=== PATIENT | female | born 1935 | race Two or more races ===

== ENCOUNTER 2017-07-22 16:10 | Emergency (ER) | payer MEDICARE, OTHER ==
[~2017-07-22] VITALS: Ht 152.4 cm; Wt 54.4 kg
[2017-07-22] MEDS ORDERED: ACETAMINOPHEN325 M1 ORAL (16:20)
[2017-07-22] MEDS ORDERED: TRAMADOL HCL50 MG ORAL (16:20)
[2017-07-22] MEDS ORDERED: ATORVASTATIN CA40 MG ORAL (16:20)
[2017-07-22 16:30] VITALS: BP 152/81
[2017-07-22] MEDS ORDERED: Sodium Chloride 500ML 500 ML IV ONE (16:36)
[2017-07-22 17:11] LABS: APPEARANCE,URINE CLEAR; BILIRUBIN, URINE NEGATIVE (NEGATIVE); COLOR,URINE PALE YELLOW; GLUCOSE, URINE (UA) NEGATIVE (NEGATIVE); KETONES,URINE NEGATIVE (NEGATIVE); LEUKOCYTE ESTERASE ,URINE 1+ (NEGATIVE); NITRITE,URINE NEGATIVE (NEGATIVE); PH,URINE 8 (4.5-8.0); PROTEIN,URINE NEGATIVE (NEGATIVE); UROBILINOGEN,URINE NORMAL MG/DL (0.0-1.0)
[2017-07-22 17:19] LABS: HEMATOCRIT 43.5 % (37.0-47.0); HEMOGLOBIN 14.2 G/DL (12.0-16.0); MEAN CORPUSCULAR VOLUME 98 FL (80-99); PLATELET COUNT 203 K/UL (150-450); RED BLOOD COUNT 4.46 M/UL (4.20-5.40); RED CELL DISTRIBUTION WIDTH 13.2 % (11.6-14.8); WHITE BLOOD COUNT 8.2 K/UL (4.8-10.8)
[2017-07-22 17:40] LABS: ANION GAP 5 mmol/L (5-15); BLOOD UREA NITROGEN 17 mg/dL (7-18); CALCIUM 11.1 MG/DL (8.5-10.1); CARBON DIOXIDE 30 MMOL/L (21-32); CHLORIDE 99 MMOL/L (98-107); CREATININE 0.6 MG/DL (0.55-1.30); POTASSIUM 4.3 MMOL/L (3.5-5.1); SODIUM 134 MMOL/L (136-145)
[2017-07-22 17:45] LABS: ALBUMIN/GLOBULIN RATIO 0.8 (1.0-2.7); ALKALINE PHOSPHATASE 89 U/L (46-116)
[2017-07-22 18:13] LABS: ALANINE AMINOTRANSFERASE 21 U/L (12-78); ALBUMIN 3.9 G/DL (3.4-5.0); ASPARTATE AMINO TRANSFERASE 17 U/L (15-37); BILIRUBIN,TOTAL 0.3 MG/DL (0.2-1.0)
[2017-07-22 18:30] VITALS: BP 147/77
--- NOTE | 2017-07-22 19:05 | Emergency Room Report ---
History of Present Illness General Chief Complaint: General Complaint Source: Medical Record Present Illness HPI 81-year-old female presents ED for evaluation. Patient sent from long-term facility. Per's nursing staff patient is crying and agitated. So patient was sent here for evaluation. Upon arrival patient states she is upset. Does not know why she was brought here. Was playing games with her friends and then they suddenly brought her to the ER. Patient does feel depressed because her family does not visit her. Denies any suicidal or homicidal ideation. Denies hearing voices. States she otherwise feels well. No other aggravating or relieving factors. Denies any other associated symptoms Allergies: Coded Allergies: No Known Allergies (Unverified , 07/22/17) Patient History Past Medical History: none Past Surgical History: none Pertinent Family History: none Social History: Denies: smoking, alcohol use, drug use Now: No Immunizations: UTD Reviewed Nursing Documentation: PMH: Agreed; PSxH: Agreed Review of Systems All Other Systems: negative except mentioned in HPI Physical Exam Vital Signs Date Time Temp Pulse Resp B/P (MAP) Pulse Ox O2 Delivery O2 Flow Rate FiO2 07/22/17 16:04 97.8 86 16 146/80 98 Room Air 97.9 Sp02 EP Interpretation: reviewed, normal General Appearance: no apparent distress, alert, GCS 15, non-toxic Head: normocephalic, atraumatic Eyes: bilateral eye normal inspection, bilateral eye PERRL ENT: hearing grossly normal, normal pharynx, no angioedema, normal voice Neck: full range of motion, supple/symm/no masses Respiratory: chest non-tender, lungs clear, normal breath sounds, speaking full sentences Cardiovascular #1: regular rate, rhythm, no edema Cardiovascular #2: 2+ carotid (R), 2+ carotid (L), 2+ radial (R), 2+ radial (L) , 2+ dorsalis pedis (R), 2+ dorsalis pedis (L) Gastrointestinal: normal bowel sounds, non tender, soft, non-distended, no guarding, no rebound Rectal: deferred Genitourinary: normal inspection, no CVA tenderness Musculoskeletal: back normal, gait/station normal, normal range of motion, non- tender Neurologic: alert, oriented x3, responsive, motor strength/tone normal, sensory intact, speech normal Psychiatric: judgement/insight normal, memory normal, no suicidal/homicidal ideation, no delusions, depressed affect, anxious Reflexes: 3+ bicep (R), 3+ bicep (L), 3+ tricep (R), 3+ tricep (L), 3+ knee (R) , 3+ knee (L) Skin: normal color, no rash, warm/dry, well hydrated Lymphatic: no adenopathy Medical Decision Making Diagnostic Impression: Primary Impression: Behavioral change ER Course Hospital Course 81-year-old female presents ED for evaluation of crying and agitated behavior as per nursing staff Differential diagnoses include: sepsis, dehyration, anxiety Clinical course Patient placed on stretcher. on illuminating engineer. After initial history and physical I ordered labs, chest x-ray UA, IVFs labs reviewed- no leukocytosis, hemoglobin/hematocrit stable, electrolytes okay , UA negative CXR no acute process During my interaction with patient patient maintains good eye contact. No signs of suicidal or homicidal ideation. No evidence of delusions. Patient does appear anxious and somewhat depressed. But not a danger to herself or others. Discussed findings with PMD Dr. Pham. He agrees patient can be safely discharged back to long-term facility I. I feel this is a highly complex case requiring extensive working including EKG/Rhythm strip, Xray/CT/US, Blood/urine lab work, repeat exams while in ED, and administration of strong opiates/narcotics for pain control, admission to hospital or close patient follow up. Diagnosis - behavioral change Stable and discharged to SNF. Followup with PMD. Return to ED if symptoms recur or worse Labs Test 07/22/17 16:50 07/22/17 17:10 Urine Color Pale yellow Urine Appearance Clear Urine pH 8 (4.5-8.0) Urine Specific [place] 1.010 (1.005-1.035) Urine Protein Negative (NEGATIVE) Urine Glucose (UA) Negative (NEGATIVE) Urine Ketones Negative (NEGATIVE) Urine Occult Blood 1+ (NEGATIVE) Urine Nitrite Negative (NEGATIVE) Urine Bilirubin Negative (NEGATIVE) Urine Urobilinogen Normal MG/DL (0.0-1.0) Urine Leukocyte Esterase 1+ (NEGATIVE) Urine RBC 0-2 /HPF (0 - 2) Urine WBC 0-2 /HPF (0 - 2) Urine Squamous Epithelial Cells Occasional /LPF Urine Bacteria None /HPF (NONE) White Blood Count 8.2 K/UL (4.8-10.8) Red Blood Count 4.46 M/UL (4.20-5.40) Hemoglobin 14.2 G/DL (12.0-16.0) Hematocrit 43.5 % (37.0-47.0) Mean Corpuscular Volume 98 FL (80-99) Mean Corpuscular Hemoglobin 31.9 PG (27.0-31.0) Mean Corpuscular Hemoglobin Concent 32.6 G/DL (32.0-36.0) Red Cell Distribution Width 13.2 % (11.6-14.8) Platelet Count 203 K/UL (150-450) Mean Platelet Volume 7.8 FL (6.5-10.1) Neutrophils (%) (Auto) % (45.0-75.0) Lymphocytes (%) (Auto) % (20.0-45.0) Monocytes (%) (Auto) % (1.0-10.0) Eosinophils (%) (Auto) % (0.0-3.0) Basophils (%) (Auto) % (0.0-2.0) Differential Total Cells Counted 100 Neutrophils % (Manual) 43 % (45-75) Lymphocytes % (Manual) 37 % (20-45) Monocytes % (Manual) 18 % (1-10) Eosinophils % (Manual) 1 % (0-3) Basophils % (Manual) 1 % (0-2) Band Neutrophils 0 % (0-8) Platelet Estimate Adequate Platelet Morphology Normal Polychromasia 1+ Macrocytosis 1+ Sodium Level 134 MMOL/L (136-145) Potassium Level 4.3 MMOL/L (3.5-5.1) Chloride Level 99 MMOL/L (98-107) Carbon Dioxide Level 30 MMOL/L (21-32) Anion Gap 5 mmol/L (5-15) Blood Urea Nitrogen 17 mg/dL (7-18) Creatinine 0.6 MG/DL (0.55-1.30) Estimat Glomerular Filtration Rate mL/min (>60) Glucose Level 107 MG/DL (74-106) Calcium Level 11.1 MG/DL (8.5-10.1) Total Bilirubin 0.3 MG/DL (0.2-1.0) Aspartate Amino Transf (AST/SGOT) 17 U/L (15-37) Alanine Aminotransferase (ALT/SGPT) 21 U/L (12-78) Alkaline Phosphatase 89 U/L (46-116) Total Protein 8.7 G/DL (6.4-8.2) Albumin 3.9 G/DL (3.4-5.0) Globulin 4.8 g/dL Albumin/Globulin Ratio 0.8 (1.0-2.7) Chest X-Ray Diagnostic Results Chest X-Ray Diagnostic Results : Chest X-Ray Ordered: Yes # of Views/Limited/Complete: 1 View Indication: Other - ams EP Interpretation: Yes Interpretation: no consolidation, no effusion, no pneumothorax, no acute cardiopulmonary disease Impression: No acute disease Electronically Signed by: Electronically signed by Boni Winters MD Last Vital Signs Date Time Temp Pulse Resp B/P (MAP) Pulse Ox O2 Delivery O2 Flow Rate FiO2 07/22/17 16:04 97.8 86 16 146/80 98 Room Air 97.9 Status: improved Disposition: XFER SNF Condition: Stable Patient Instructions: Depression, Adult, [id number] Boni Winters MD Jul 22, 2017 19:05
[2017-07-22 19:24] VITALS: BP 133/69
[2017-07-22 20:30] VITALS: BP 133/69
--- NOTE | 2017-07-23 10:25 | Diagnostic Imaging Report ---
Indication: Chest pain Technique: One view of the chest Comparison: none Findings: Mild perihilar interstitial prominence and bronchial wall thickening is probably chronic. The lungs and pleural spaces are otherwise clear. Heart size is normal. The aorta is tortuous and calcified. There is mild thoracic scoliotic deformity Impression: Mild perihilar interstitial prominence and bronchial wall thickening, suspect chronic No definite acute process
== END 2017-07-22 20:30 ==
LOC: EDBD 16:10 → EMR 16:41
DX: F91.9 Conduct disorder, unspecified (principal)
CPT/HCPCS: 36415; 71045; 80053; 81003; 85007; 85025; 96361; 96374; 99284

== ENCOUNTER 2019-10-27 10:12 | Inpatient (IN) | payer MEDICARE, MEDICAID ==
[~2019-10-27] VITALS: Ht 157.5 cm; Wt 52.6 kg
[~2019-10-27 10:12] MED LIST: ACETAMINOPHEN325 M1 ORAL; ATORVASTATIN CA40 MG ORAL; TRAMADOL HCL50 MG ORAL
--- NOTE | 2019-10-27 10:30 | NUR ---
ED Nurse Note: Patient BIBA From [facility], per EMS, patient has not been eating for 2 days. Patient brought here for G-Tube placement. Patient AxO x 2, breathing even and unlabored. Patient on the monitor car operator, no s/s of acute distress.
[2019-10-27] MEDS ORDERED: NORCO 5-325 TA1 EAC1 ORAL (10:40)
[2019-10-27] MEDS ORDERED: NORCO 10-325 T1 EACH ORAL (10:40)
[2019-10-27] MEDS ORDERED: ACETAMINOPHEN500 MG ORAL (11:25)
[2019-10-27] MEDS ORDERED: ZINC SULFATE220 M1 ORAL ×2 (11:25→16:24)
[2019-10-27] MEDS ORDERED: CALCIUM + VITA1 EAC1 PO (11:25)
[2019-10-27] MEDS ORDERED: VITAMIN C500 M1 ORAL (11:25)
[2019-10-27] MEDS ORDERED: ATORVASTATIN CA40 MG ORAL ×2 (11:25→19:57)
[2019-10-27] MEDS ORDERED: PANTOPRAZOLE SO40 MG ORAL (11:25)
[2019-10-27] MEDS ORDERED: MIRTAZAPINE30 MG ORAL (11:25)
[2019-10-27] MEDS ORDERED: NOVOLIN R100 UNIT/1 SUBQ ×2 (11:25→16:18)
[2019-10-27] MEDS ORDERED: MELATONIN3 M2 PO (11:25)
[2019-10-27] MEDS ORDERED: ASPIR 8181 MG ORAL ×2 (11:25→19:57)
--- NOTE | 2019-10-27 11:26 | Emergency Room Report ---
History of Present Illness General Chief Complaint: Generalized Weakness Source: Medical Record, EMS Present Illness HPI 83-year-old female presents for evaluation. Brought in from [facility] facility by EMS. Increased weakness for few days. Poor oral intake. Patient nonverbal at baseline. Moaning in ambulance bay. Unable to provide any additional history at this time. No reported fevers or chills. No nausea or vomiting. No other aggravating relieving factors. No other associated symptoms Allergies: Coded Allergies: ALENDRONATE SODIUM (Verified Allergy, Unknown, 10/27/19) SIMVASTATIN (Verified Allergy, Unknown, 10/27/19) COVID-19 Screening Contact w/high risk pt: No Recent Travel to affected area: No Experienced COVID-19 symptoms?: No COVID-19 Testing performed ROVING INSPECTOR: No Patient History Past Medical History: none Past Surgical History: none Pertinent Family History: none Social History: Denies: smoking, alcohol use, drug use Now: No Immunizations: UTD Reviewed Nursing Documentation: PMH: Agreed; PSxH: Agreed Review of Systems All Other Systems: limited Physical Exam Vital Signs Date Time Temp Pulse Resp B/P (MAP) Pulse Ox O2 Delivery O2 Flow Rate FiO2 10/27/19 10:12 97.9 104 22 94/64 (74) 92 Room Air Sp02 EP Interpretation: reviewed, normal General Appearance: GCS 15, non-toxic, other - Nonverbal Head: normocephalic, atraumatic Eyes: bilateral eye normal inspection, bilateral eye PERRL ENT: hearing grossly normal, normal pharynx, no angioedema, normal voice Neck: full range of motion, supple/symm/no masses Respiratory: chest non-tender, lungs clear, normal breath sounds, speaking full sentences Cardiovascular #1: regular rate, rhythm, no edema Cardiovascular #2: 2+ carotid (R), 2+ carotid (L), 2+ radial (R), 2+ radial (L) , 2+ dorsalis pedis (R), 2+ dorsalis pedis (L) Gastrointestinal: normal bowel sounds, non tender, soft, non-distended, no guarding, no rebound Rectal: deferred Genitourinary: normal inspection, no CVA tenderness Musculoskeletal: back normal, normal range of motion, non-tender Neurologic: alert, motor strength/tone normal, sensory intact, other - Nonverbal Psychiatric: other - Nonverbal Reflexes: 3+ bicep (R), 3+ bicep (L), 3+ tricep (R), 3+ tricep (L), 3+ knee (R) , 3+ knee (L) Skin: other - See nursing notes Lymphatic: no adenopathy Medical Decision Making Diagnostic Impression: Primary Impression: Episode of generalized weakness Additional Impressions: Failure to thrive Qualified Codes: R62.7 - Adult failure to thrive UTI (urinary tract infection) Qualified Codes: N39.0 - Urinary tract infection, site not specified ER Course Hospital Course 83-year-old female presenting to ED with generalized weakness, poor appetite Differential diagnoses include: Pneumonia, UTI, sepsis, dehydration, CO/ unstable angina, failure to thrive Clinical course Patient placed on stretcher. On hall monitor. After initial history and physical, I ordered labs, IV fluids, EKG, chest x-ray, blood cultures, UA. Labs - noted leukocytosis, K 2.9, lactic ok, UA + bacteria CXR - no acute process given IV fluids. Given antibiotics. Case discussed with Dr Pham and they agreed to admit patient to their service for further care and support I feel this is a highly complex case requiring extensive working including EKG/ Rhythm strip, Xray/CT/US, Blood/urine lab work, repeat exams while in ED, and administration of strong opiates/narcotics for pain control, admission to hospital or close patient follow up. Diagnosis - episode of generalized weakness, failure to thrive, UTI Patient admitted to floor in serious condition Labs Test 10/27/19 11:35 10/27/19 12:35 White Blood Count 13.4 K/UL (4.8-10.8) Red Blood Count 3.86 M/UL (4.20-5.40) Hemoglobin 12.4 G/DL (12.0-16.0) Hematocrit 38.8 % (37.0-47.0) Mean Corpuscular Volume 101 FL (80-99) Mean Corpuscular Hemoglobin 32.1 PG (27.0-31.0) Mean Corpuscular Hemoglobin Concent 31.9 G/DL (32.0-36.0) Red Cell Distribution Width 15.9 % (11.6-14.8) Platelet Count 274 K/UL (150-450) Mean Platelet Volume 8.1 FL (6.5-10.1) Neutrophils (%) (Auto) % (45.0-75.0) Lymphocytes (%) (Auto) % (20.0-45.0) Monocytes (%) (Auto) % (1.0-10.0) Eosinophils (%) (Auto) % (0.0-3.0) Basophils (%) (Auto) % (0.0-2.0) Differential Total Cells Counted 100 Neutrophils % (Manual) 55 % (45-75) Lymphocytes % (Manual) 16 % (20-45) Monocytes % (Manual) 22 % (1-10) Eosinophils % (Manual) 2 % (0-3) Basophils % (Manual) 0 % (0-2) Band Neutrophils 5 % (0-8) Platelet Estimate Adequate Platelet Morphology Normal Anisocytosis 1+ Macrocytosis 1+ Sodium Level 141 MMOL/L (136-145) Potassium Level 2.9 MMOL/L (3.5-5.1) Chloride Level 102 MMOL/L (98-107) Carbon Dioxide Level 28 MMOL/L (21-32) Anion Gap 11 mmol/L (5-15) Blood Urea Nitrogen 3 mg/dL (7-18) Creatinine 0.5 MG/DL (0.55-1.30) Estimat Glomerular Filtration Rate > 60 mL/min (>60) Glucose Level 138 MG/DL (74-106) Lactic Acid Level 1.20 mmol/L (0.4-2.0) Calcium Level 9.1 MG/DL (8.5-10.1) Total Bilirubin 1.0 MG/DL (0.2-1.0) Aspartate Amino Transf (AST/SGOT) 17 U/L (15-37) Alanine Aminotransferase (ALT/SGPT) < 6 U/L (12-78) Alkaline Phosphatase 87 U/L (46-116) Total Protein 7.5 G/DL (6.4-8.2) Albumin 2.3 G/DL (3.4-5.0) Globulin 5.2 g/dL Albumin/Globulin Ratio 0.4 (1.0-2.7) Urine Color Yellow Urine Appearance Cloudy Urine pH 7 (4.5-8.0) Urine Specific [place] 1.010 (1.005-1.035) Urine Protein 3+ (NEGATIVE) Urine Glucose (UA) Negative (NEGATIVE) Urine Ketones 3+ (NEGATIVE) Urine Blood 4+ (NEGATIVE) Urine Nitrite Positive (NEGATIVE) Urine Bilirubin 1+ (NEGATIVE) Urine Ictotest Negative (NEGATIVE) Urine Urobilinogen 12 MG/DL (0.0-1.0) Urine Leukocyte Esterase 3+ (NEGATIVE) Urine RBC 5-10 /HPF (0 - 2) Urine WBC Tntc /HPF (0 - 2) Urine Squamous Epithelial Cells Few /LPF (NONE/OCC) Urine Bacteria Many /HPF (NONE) Chest X-Ray Diagnostic Results Chest X-Ray Diagnostic Results : Chest X-Ray Ordered: Yes # of Views/Limited/Complete: 1 View Indication: Other EP Interpretation: Yes Interpretation: no consolidation, no effusion, no pneumothorax, no acute cardiopulmonary disease Impression: No acute disease Electronically Signed by: Electronically signed by Boni Winters MD Last Vital Signs Date Time Temp Pulse Resp B/P (MAP) Pulse Ox O2 Delivery O2 Flow Rate FiO2 /2/20 10:12 97.9 104 22 94/64 (74) 92 Room Air Status: improved Disposition: ADMITTED INPATIENT Condition: Serious Boni Winters MD Oct 27, 2019 11:26
--- NOTE | 2019-10-27 11:40 | NUR ---
ED Nurse Note: Blood drawn and sent to lab along with VRE/MRSA swabs
[2019-10-27 11:56] VITALS: BP 118/67
[2019-10-27 11:57] LABS: HEMATOCRIT 38.8 % (37.0-47.0); HEMOGLOBIN 12.4 G/DL (12.0-16.0); MEAN CORPUSCULAR VOLUME 101 FL (80-99); PLATELET COUNT 274 K/UL (150-450); RED BLOOD COUNT 3.86 M/UL (4.20-5.40); RED CELL DISTRIBUTION WIDTH 15.9 % (11.6-14.8); WHITE BLOOD COUNT 13.4 K/UL (4.8-10.8)
[2019-10-27 12:22] LABS: ANION GAP 11 mmol/L (5-15); BLOOD UREA NITROGEN 3 mg/dL (7-18); CALCIUM 9.1 MG/DL (8.5-10.1); CARBON DIOXIDE 28 MMOL/L (21-32); CHLORIDE 102 MMOL/L (98-107); CREATININE 0.5 MG/DL (0.55-1.30); POTASSIUM 2.9 MMOL/L (3.5-5.1); SODIUM 141 MMOL/L (136-145)
--- NOTE | 2019-10-27 12:30 | NUR ---
ED Nurse Note: Foeley catheter placed, urine specimen sent to lab.
[2019-10-27 12:40] LABS: ALANINE AMINOTRANSFERASE < 6 U/L (12-78); ALBUMIN 2.3 G/DL (3.4-5.0); ALBUMIN/GLOBULIN RATIO 0.4 (1.0-2.7); ALKALINE PHOSPHATASE 87 U/L (46-116); ASPARTATE AMINO TRANSFERASE 17 U/L (15-37)
--- NOTE | 2019-10-27 12:52 | NUR ---
ED Nurse Note: Patient resting in bed, breathing even and unlabored. No s/s of acute distress, will continue to monitor.
[2019-10-27 12:55] LABS: APPEARANCE,URINE CLOUDY; BILIRUBIN, URINE 1+ (NEGATIVE); GLUCOSE, URINE (UA) NEGATIVE (NEGATIVE); KETONES,URINE 3+ (NEGATIVE); LEUKOCYTE ESTERASE ,URINE 3+ (NEGATIVE); NITRITE,URINE POSITIVE (NEGATIVE); PH,URINE 7 (4.5-8.0); PROTEIN,URINE 3+ (NEGATIVE); UROBILINOGEN,URINE 12 MG/DL (0.0-1.0)
[2019-10-27] MEDS ORDERED: NS w/KCl 40mEq 1,000 ML IV SCH (13:00)
[2019-10-27 13:10] LABS: COLOR,URINE YELLOW
[2019-10-27] MEDS ORDERED: cefTRIAXone 1 GM in NS 55 ML IVPB ONE (13:30)
[2019-10-27 13:53] VITALS: BP 116/68
--- NOTE | 2019-10-27 15:20 | Diagnostic Imaging Report ---
Indication: Shortness of breath Technique: One view of the chest Comparison: 07/22/2017 Findings: Bilateral interstitial disease with central bronchial wall thickening appears similar to the prior exam, suspect chronic on the basis of senescent changes. The heart size is upper limits normal. The aorta is tortuous and calcified. 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 Correlate with clinical findings
--- NOTE | 2019-10-27 15:50 | NUR ---
ED Nurse Note: Report given to Richar HERNÁNDEZ
[2019-10-27] MEDS ORDERED: PROTONIX40 MG ORAL (16:19)
[2019-10-27] MEDS ORDERED: ASCORBIC ACID500 MG ORAL (16:22)
[2019-10-27] MEDS ORDERED: LATANOPROST2.5 ML BOTH EYES (16:23)
--- NOTE | 2019-10-27 17:02 | History & Physical ---
History and Physical History & Physicial pt was seen in ER lethargic severe malnutrition UTI Full note will be dictated Migel Pham MD Oct 27, 2019 17:02
[2019-10-27] MEDS: D5 1/2NS w/KCl 40meq 1000ml 1,000 ML IV SCH ×2 (17:44→18:44)
--- NOTE | 2019-10-27 18:13 | NUR ---
NURSE NOTES: Picture of Sacral Wound would not load up. Matter regarding [place] [facility]. Contacted HELP Desk. Ticket Number [phone].
--- NOTE | 2019-10-27 18:38 | NUR ---
NURSE NOTES: Patient unable to tolerate potassium replacement IV, I had to slow down to 50 cc/hour and patient is tolerating well.
[2019-10-27] MEDS: Piperacillin/Tazobactam 3.375 GM in NS 110 ML IVPB SCH (18:45)
[2019-10-27] MEDS: Heparin 5000 units/ml inj SUBQ SCH (18:48)
--- NOTE | 2019-10-27 19:40 | NUR ---
NURSE NOTES: Patient in semi-Colin's position, sleeping, IV patent in left upper arm, side rails up x 3, bed in lowest position, wheels locked, antibiotics and IV fluid with potassium running, endorsing NG Tube, Wound Photo upload, and three medicines to add to medication reconciliation, all materials at bedside, patient in no apparent distress.
--- NOTE | 2019-10-27 19:45 | NUR ---
NURSE NOTES: Report received from Richar HERNÁNDEZ. Patient is awake and alert x 1. Endorsed to Caden HERNÁNDEZ that patient is [place]/Rwandan speaking, Rwandan is primary language. Patient is room air, does not appear to be in respiratory distress at this time. Endorsed to Caden HERNÁNDEZ that patient has high white blood cell count likely due to UTI. Patient noted to have 22 teresa IV access in left upper arm with fluids running per MD orders. IV accessed removed from left hand as was no lunger flushing. Was endorsed to Caden HERNÁNDEZ that patient needs NG tube placement, however, patient is resistive to care. Was endorsed to Caden HERNÁNDEZ that Richar HERNÁNDEZ was unable to upload wound care photo. Ticket placed to HELP desk by Richar HERNÁNDEZ. Caden HERNÁNDEZ updated patients medication list. Bed locked, in lowest position, and alarmed. Will continue to follow plan of care
--- NOTE | 2019-10-27 19:47 | NUR ---
HAND-OFF: Report given to Caden Ortiz RN. Patient in semi-Colin's position, sleeping, IV patent in left upper arm, side rails up x 3, bed in lowest position, wheels locked, antibiotics and IV fluid with potassium running, endorsing NG Tube, Wound Photo upload, and three medicines to add to medication reconciliation, all materials at bedside, patient in no apparent distress.
[2019-10-27] MEDS ORDERED: DORZOLAMIDE 2%10 ML OP (19:57)
[2019-10-27 20:00] VITALS: BP 128/67
[2019-10-27] MEDS: NovoLOG Insulin Flexpen SUBQ SCH (20:43)
--- NOTE | 2019-10-27 21:40 | NUR ---
NURSE NOTES: Attempted to place NG tube. Caden RN and Jessica RN both unsuccessful in placing NG tube. Allowing patient to rest at this time. Will attempt again later in shift.
--- NOTE | 2019-10-27 23:43 | NUR ---
NURSE NOTES: Wound care photo uploaded to patients chart.
[2019-10-28] VITALS (7 sets, daily range): BP systolic 95–122; BP diastolic 58–66
--- NOTE | 2019-10-28 00:07 | NUR ---
NURSE NOTES: Nasogastric tube placed. Air sounds auscultated when air injected into tube. Anchored with tape. STAT xray of abdomen ordered.
--- NOTE | 2019-10-28 00:57 | Diagnostic Imaging Report ---
EXAM: XR Abdomen, 2 Views CLINICAL HISTORY: NGT TECHNIQUE: Frontal view of the abdomen/pelvis with upright view of the abdomen. COMPARISON: None FINDINGS: Hardware: Enteric tube terminates in the region of the stomach. Catheter projected over the pelvis. Abdomen: Nonobstructive but nonspecific bowel gas pattern. No free air. Bones: 3 screws traversing the right femoral neck. Prominent degenerative changes of the right hip with flattening of the right femoral head. Osteopenia. Soft tissues: Injection granulomas in the gluteal soft tissues. Lower chest: Left basilar opacity with probable left-sided pleural effusion. IMPRESSION: Enteric tube terminates in the region of the stomach.
--- NOTE | 2019-10-28 01:50 | NUR ---
NURSE NOTES: Nasogastric tube placement confirmed by Ayah Hernandez MD. In place, patent, and okay to use. Caden HERNÁNDEZ began Glucerna 1.2 per MD orders. Began feeding at a rate of 20 cc/hr. Will continue to increase to goal rate of 60 cc/hr if patient continues to tolerate feeding.
--- NOTE | 2019-10-28 02:53 | NUR ---
NURSE NOTES: Patient appears to be tolerating tube feeding well. No nausea of vomiting. Residual of 25 cc. Caden HERNÁNDEZ increased Glucerna 1.2 from 20 cc/hr to 30 cc/hr, working towards goal rate of 60 cc/hr. Will continue to monitor and increase feeding rate as tolerated by patient.
--- NOTE | 2019-10-28 03:55 | NUR ---
NURSE NOTES: Patient continues to appear to be tolerating feeding well. No residual. Caden HERNÁNDEZ increased Glucerna 1.2 to run at 40 cc/hr working towards goal rate of 60 cc/hr.
--- NOTE | 2019-10-28 04:59 | NUR ---
NURSE NOTES: Patient continues to appear to be tolerating feeding well. No residual. Caden HERNÁNDEZ increased Glucerna 1.2 to run at 50 cc/hr working towards goal rate of 60 cc/hr.
--- NOTE | 2019-10-28 05:50 | NUR ---
NURSE NOTES: Patient continues to tolerate feeding. 10 cc residual. Caden HERNÁNDEZ increased Glucerna 1.2 feeding to 60 cc/hr. Patient now at goal rate.
[2019-10-28] MEDS: D5 1/2NS w/KCl 40meq 1000ml 1,000 ML IV SCH ×2 (06:08→20:07)
[2019-10-28] MEDS: Piperacillin/Tazobactam 3.375 GM in NS 110 ML IVPB SCH ×3 (06:09→20:09)
[2019-10-28] MEDS: NovoLOG Insulin Flexpen SUBQ SCH ×4 (06:26→20:10)
--- NOTE | 2019-10-28 07:35 | NUR ---
NURSE NOTES: pt in bed resting. Pt has [place] tube feeding. Pt keeps moaning and states throat hurts. Bed is locked and in lowest position. Calll light within reach. Will continue to monitor pt. IV site intact and running.
--- NOTE | 2019-10-28 07:39 | NUR ---
HAND-OFF: Report given to Mitzy HERNÁNDEZ. Endorsed that patient recently met goal rate for tube feeding and to continue to monitor. Endorsed wound care. Patient currently in stable condition.
[2019-10-28 08:14] LABS: HEMATOCRIT 36.5 % (37.0-47.0); HEMOGLOBIN 11.7 G/DL (12.0-16.0); MEAN CORPUSCULAR VOLUME 101 FL (80-99); PLATELET COUNT 265 K/UL (150-450); RED BLOOD COUNT 3.61 M/UL (4.20-5.40); RED CELL DISTRIBUTION WIDTH 15.9 % (11.6-14.8)
[2019-10-28 08:38] LABS: ALANINE AMINOTRANSFERASE 9 U/L (12-78); ALBUMIN 2.1 G/DL (3.4-5.0); ALBUMIN/GLOBULIN RATIO 0.4 (1.0-2.7); ALKALINE PHOSPHATASE 82 U/L (46-116); ANION GAP 8 mmol/L (5-15); ASPARTATE AMINO TRANSFERASE 15 U/L (15-37); BILIRUBIN,TOTAL 0.5 MG/DL (0.2-1.0); BLOOD UREA NITROGEN 5 mg/dL (7-18); CALCIUM 9.1 MG/DL (8.5-10.1); CARBON DIOXIDE 26 MMOL/L (21-32); CHLORIDE 104 MMOL/L (98-107); CHOLESTEROL 91 MG/DL (< 200); CREATININE 0.5 MG/DL (0.55-1.30); HDL CHOLESTEROL 30 MG/DL (40-60); POTASSIUM 3.2 MMOL/L (3.5-5.1); SODIUM 138 MMOL/L (136-145); TRIGLYCERIDES 94 MG/DL (30-150)
[2019-10-28] MEDS: Heparin 5000 units/ml inj SUBQ SCH ×2 (08:43→20:09)
--- NOTE | 2019-10-28 08:56 | NUR ---
CHARGE NURSE NOTE: WBC 01734, K3.2. was called, message left.
--- NOTE | 2019-10-28 09:38 | NUR ---
CHARGE NURSE NOTE: Spoke with (ID doctor), notified him about WBC count. He will see pt today. No new orders given.
--- NOTE | 2019-10-28 10:05 | NUR ---
PT EVALUATION NOTE Patient seen for initial evaluation. Patient is total assist with all functional mobility and ADLs. Skilled inpatient PT intervention not indicated as patient is at baseline level of functioning. Patient discharged from PT, Mitzy HERNÁNDEZ notified. Addendum: 10/28/19 at 1041 by HOA QUIROS PT Amended: Links added.
--- NOTE | 2019-10-28 10:20 | NUR ---
RD ASSESSMENT & RECOMMENDATIONS SEE CARE ACTIVITY FOR COMPLETE ASSESSMENT DAILY ESTIMATED NEEDS: Needs based on DM, 50.3kg 25-35 kcals/kg 4849-4179 total kcals 1.25-1.5 g protein/kg 63-75 g total protein 25-30 mL/kg 0628-3289 total fluid mLs NUTRITION DIAGNOSIS: Swallowing difficulty r/t FTT and poor po intake as evidenced by pt adm from SNF w/ poor intake, now on NGT feeds. CURRENT TF: Glucerna 1.2 @60 ENTERAL NUTRITION RECOMMENDATIONS: LOWER GLUCERNA 1.2 to goal of 55ml/hr x24 hrs to provide 1320ml, 1584 kcal, 79g pro, 1063ml free fluid - rec to lower current goal rate to 55ml/hr - Flush per MD/ HOB over 30 degrees ADDITIONAL RECOMMENDATIONS: 1) Maintain calibrated bed scale wts 2) F/up w/ WC eval 3) Rec SEWAGE PLANT SUPERVISOR eval for oral grat 4) F/up w/ H&P 5) Monitor BG, need for NISS or change of IVF from D5 to NS
--- NOTE | 2019-10-28 10:57 | NUR ---
NURSE NOTES: pt pulled out NG tube, and complains of pain when she is on her right side.
--- NOTE | 2019-10-28 12:24 | NUR ---
CASE MANAGEMENT: INITIAL REVIEW 83 YO F JOSEFINA FROM [facility] CC: GEN WEAKNESS PMHx: UNABLE TO STATE Si:FTT. WEAKNESS. VS: T 97.9 HR 104 RR 22 B/P 94/64 SATS 92% ON RA LABS: WBC 13.4 K 2.9 BUN 3 CR 0.5 GLU 138 ALT <6 IS:NS BOLUS X1 NS W/ KCL X1 CEFTRIAXONE IV X1 CXR Impression: No acute disease PATIENT ADMITTED TO MED/SURG 10/27/2019 @ 1325 DCP: SNF PLAN OF CARE: NON VIOLENT RESTRAINTS
--- NOTE | 2019-10-28 14:25 | NUR ---
NURSE NOTES: Charge nurse will endorse plan of care to Leonel
--- NOTE | 2019-10-28 14:34 | General Progress Note ---
Assessment/Plan Problem List: (1) UTI (urinary tract infection) ICD Codes: N39.0 - Urinary tract infection, site not specified SNOMED: 42146972 Qualifiers: Qualified Codes: N39.0 - Urinary tract infection, site not specified (2) Severe protein-calorie malnutrition ICD Codes: E43 - Unspecified severe protein-calorie malnutrition SNOMED: 027447475, 355301452, 322547421 (3) Failure to thrive SNOMED: 78687667 Qualifiers: Qualified Codes: R62.7 - Adult failure to thrive (4) Toxic metabolic encephalopathy ICD Codes: G92 - Toxic encephalopathy SNOMED: 681479913 (5) Diabetes mellitus ICD Codes: E11.9 - Type 2 diabetes mellitus without complications SNOMED: 92791134 (6) Hypokalemia ICD Codes: E87.6 - Hypokalemia SNOMED: 68333390 Assessment/Plan: IVF with K Reinsert NG TF Neurology and psych consult follow labs SSI Discussed with RN and Dr Abbi taylor Subjective Allergies: Coded Allergies: ALENDRONATE SODIUM (Verified Allergy, Unknown, 10/27/19) SIMVASTATIN (Verified Allergy, Unknown, 10/27/19) Subjective pulled her NG Objective Last 24 Hour Vital Signs Date Time Temp Pulse Resp B/P (MAP) Pulse Ox O2 Delivery O2 Flow Rate FiO2 10/28/19 12:22 97.9 108 20 95/60 (72) 95 10/28/19 09:00 Room Air 10/28/19 08:00 98.6 121 22 111/64 (80) 93 10/28/19 05:17 Room Air 10/28/19 04:00 98.2 110 21 114/66 (82) 94 10/28/19 00:00 97.8 99 20 107/58 (74) 95 10/27/19 21:00 Room Air 10/27/19 20:00 98.0 104 20 128/67 (87) 98 10/27/19 16:55 Room Air 10/27/19 15:55 97.8 84 22 116/68 98 Room Air Intake and Output 10/27/19 10/28/19 19:00 07:00 Intake Total 0 ml 895.0 ml Output Total 200 ml 300 ml Balance -200 ml 595.0 ml Intake Oral 0 ml Free Water 60 ml IV Total 635.0 ml Tube Feeding 200 ml Output Urine Total 200 ml 300 ml # Voids 1 # Bowel Movements 1 2 Laboratory Tests 10/28/19 07:30: White Blood Count 16.0H, Red Blood Count 3.61L, Hemoglobin 11.7L, Hematocrit 36.5L, Mean Corpuscular Volume 101H, Mean Corpuscular Hemoglobin 32.4H, Mean Corpuscular Hemoglobin Concent 32.0, Red Cell Distribution Width 15.9H, Platelet Count 265, Mean Platelet Volume 7.9, Neutrophils (%) (Auto) , Lymphocytes (%) (Auto) , Monocytes (%) (Auto) , Eosinophils (%) (Auto) , Basophils (%) (Auto) , Differential Total Cells Counted 100, Neutrophils % ( Manual) 59, Lymphocytes % (Manual) 21, Monocytes % (Manual) 18H, Eosinophils % ( Manual) 2, Basophils % (Manual) 0, Band Neutrophils 0, Platelet Estimate Adequate, Platelet Morphology Normal, Hypochromasia 1+, Anisocytosis 1+, Macrocytosis 1+, Sodium Level 138, Potassium Level 3.2L, Chloride Level 104, Carbon Dioxide Level 26, Anion Gap 8, Blood Urea Nitrogen 5L, Creatinine 0.5L, Estimat Glomerular Filtration Rate > 60, Glucose Level 198H, Hemoglobin A1c 6.6H , Calcium Level 9.1, Magnesium Level 1.6L, Total Bilirubin 0.5, Aspartate Amino Transf (AST/SGOT) 15, Alanine Aminotransferase (ALT/SGPT) 9L, Alkaline Phosphatase 82, Total Protein 7.3, Albumin 2.1L, Globulin 5.2, Albumin/Globulin Ratio 0.4L, Triglycerides Level 94, Cholesterol Level 91, LDL Cholesterol 42, HDL Cholesterol 30L, Cholesterol/HDL Ratio 3.0L, Thyroid Stimulating Hormone ( TSH) 2.929 Height (Feet): 5 Height (Inches): 2.00 Weight (Pounds): 116 Cardiovascular: normal rate Respiratory/Chest: lungs clear Abdomen: soft Edema: no edema noted Migel Barrett MD Oct 28, 2019 14:34
--- NOTE | 2019-10-28 15:00 | Consultation ---
Consult Note Consult Note [facility] NEUROLOGY CONSULTATION October 28, [address] Pham, I evaluated Ms. Alessandra Veliz and my assesement is as follows. HISTORY: Ms. Alessandra Veliz is an 83-year-old, right-handed, lady, who does have a past history of diabetes mellitus and cognitive dysfunction. As per Dr. Pham who has been taking care of her for some time at her baseline she is able to communicate and do a little bit of walking. She lives in a long-term where she was noted to be increasingly weak, more confused and agitated, not her usual self. As a result of that she was brought into the [facility] emergency room and has since been admitted. This consultation was requested to evaluate the patient from a neurological point of view for her altered mental state. Ms. Veliz was unable to give me any history. PAST HISTORY: Diabetes mellitus and cognitive dysfunction. FAMILY HISTORY: Unavailable. PERSONAL HISTORY: Home: She lives in a long-term. Work: She is unemployed now and is unable to tell me what she did in the past. Habits: There is no history of alcohol tobacco or illicit drug use in the near past. ALLERGIES: She is allergic to simvastatin and alendronate. NEUROLOGIC REVIEW OF SYSTEMS: Benign. PHYSICAL EXAMINATION: GENERAL: The patient is a well developed, but lean lady lying in bed screaming from time to time for no apparent reason. VITAL SIGNS: Pulse: 108/minute and regular. Blood Pressure: 95/60 mm of Hg. Respirations: 20/minute Temperature: 97.9 F HEAD: Normocephalic and atraumatic. NECK: No neck rigidity was observed. EENT: Benign. EXTREMITIES: Benign. NEUROLOGIC EXAMINATION: MENTAL STATUS EXAMINATION: She was awake but not completely alert. She was oriented to self only. She had no idea of where she was or the date was. She was able to recall 3/3 words immediately but could not remember any of them in 1 minute and 3 minutes. She was unable to tell me who the president president was or who any presidents were. She was unable to cooperate for further mental status testing. SPEECH: She had a mild dysarthria. LANGUAGE: Language was impossible to test because of inability to cooperate. CRANIAL NERVE EXAMINATION: II: She did blink to threat but was unable to cooperate for confrontation testing. III, IV, : External ocular movements were full and pupils 3 mm in diameter equal, round, regular and reactive to light. V: The facial sensations were normal, and the temporales, masseters and pterygoids functioned normally. VII: The facial expressions were normal and no facial asymmetry was seen. VIII: She was able to hear well bilaterally and had no nystagmus. IX: The palate moved symmetrically on phonation. X: There was no hoarseness of voice. XI: The sternocleidomastoids and trapezii functioned normally. XII: The tongue was in the midline without any fasciculations or atrophy. MOTOR SYSTEM: The tone was normal in all 4 extremities. Examination of muscle mass revealed generalized muscle wasting. In addition she also had mild bilateral ankle cord contractures. Examination of power would not be performed formally. She did move all 4 extremities and had fair handgrips bilaterally. SENSORY EXAMINATION: She responded appropriately to deep painful stimuli. She was unable to cooperate for other sensory modalities. COORDINATION: She did not cooperate for coordination testing. REFLEXES: 0 at the biceps, triceps, brachioradialis, knees and ankles. The plantar responses were flexor bilaterally. STANCE: Could not be tested. GAIT: Could not be tested. ABNORMAL MOVEMENTS: None DIAGNOSTIC IMPRESSION: 1. Ms. Alessandra Veliz is an 83-year-old, right-handed, lady, who does have a past history of diabetes mellitus and cognitive dysfunction. At her baseline she is able to communicate and do a little bit of walking. 2. She lives in a long-term where she was noted to be increasingly weak, more confused and agitated, not her usual self. 3. On neurological examination, at this time, She is awake but not completely alert. She is oriented to self only. She has no idea of where she is or the date is. She has severe problems with recent and remote memory. She is unable to cooperate for further mental status testing. She does not demonstrate any definite focal findings on her cranial nerve examination. She is generally weak but does not demonstrate any focal weakness. She does have bilateral ankle cord contractures. She responds appropriately to deep pain but is unable to cooperate further sensory modalities. Her deep tendon reflexes are globally absent but her plantar responses are flexor. She is unable to cooperate for coordination stance and gait testing. 4. Laboratory data obtained thus far have revealed a WBC count elevated at 16,000, a low hemoglobin at 11.7, elevated glucose at 198, elevated hemoglobin A1c at 6.6%, normal TSH at 2.929. The urinalysis reveals 3+ leukocyte esterase, 5-10 RBCs and too numerous to count WBCs per high-power field. 5. The patient's history, neurological examination, and laboratory data, are most consistent with underlying cognitive dysfunction most probably related to a primary degenerative process with a superadded toxic encephalopathy related to her acute urinary tract infection. RECOMMENDATIONS: 1. Agree with management thus far. 2. In addition to the laboratory tests already done, a B12 level, folate level, vitamin D level, RPR, will be ordered to evaluate the patient for her altered mental state. 3. A CT scan of the brain without contrast will be ordered to evaluate the patient for acute intracranial pathology of significance. 4. An EEG will be ordered to evaluate the patient for the degree and type of cerebral dysfunction. 5. Continue antibiotic treatment and fluid and electrolyte correction. 6. The patient will be observed closely and depending on how she fares over the next day or so further recommendations will be given. Thank you for entrusting me to take care of Ms. Veliz's neurologic needs. I shall follow her with you. Sincerely, Isak Go M.D., M.S.P.H. Neurologist & Clinical Neurophysiologist Isak Go MD Oct 28, 2019 15:00
--- NOTE | 2019-10-28 15:45 | Consultation ---
DATE OF CONSULTATION: 10/28/2019 INFECTIOUS DISEASE CONSULTATION CONSULTING PHYSICIAN: Felix Pham MD. PRIMARY ATTENDING PHYSICIAN: Migel Pham MD. REASON FOR CONSULT: Sepsis, UTI. HISTORY OF PRESENT ILLNESS: This is an 83-year-old female admitted yesterday from a nursing facility because of weakness and decrease in p.o. intake. The patient had leukocytosis of 13.4 at the time of admission and tachycardia that is up to 121 right now. The patient complains of pain in lower back. PAST MEDICAL HISTORY: Alzheimer dementia, dysphagia, diabetes mellitus type 2, osteoporosis, and major depression. ALLERGIES: Allergic to alendronate and simvastatin. MEDICATIONS: Getting NovoLog insulin, Zosyn, heparin, and Tylenol. Got a dose of ceftriaxone in the ER. SOCIAL HISTORY: shelter resident. Single. No history of alcohol, drug abuse, or smoking. REVIEW OF SYSTEMS: Limited. She has pain more in the lower back. PHYSICAL EXAMINATION: VITAL SIGNS: Temperature 98, pulse 121, blood pressure 111/64. GENERAL APPEARANCE: Seems to be thin. HEAD AND NECK: [place] conjunctivae. HEART: Normal rate. LUNGS: Clear. ABDOMEN: Soft, nontender. EXTREMITIES: No edema. SKIN: Developing pressure ulcer in sacral buttock area. LABORATORY AND DIAGNOSTIC DATA: WBC 16, hemoglobin 11.7, hematocrit 36.5, and platelets 265,000. Sodium 138, potassium 3.2, chloride 104, bicarb 26, BUN 5, creatinine 0.5. Glucose 98. Albumin is low 2.1. UA showed wbc too numerous to count, nitrite positive, glucose 3+. Urine culture growing gram-negative rods. IMPRESSION: Sepsis with leukocytosis, and tachycardia. She has pyuria, urinary tract infection. She has deep tissue injury in sacral buttock area. She has diabetes mellitus type 2, dementia, osteoporosis, decrease in p.o. intake, and generalized weakness. RECOMMENDATION: Continue with Zosyn. We will follow up the cultures. At the end of my exam, I thank Dr. Migel Pham for involving me in the care of this patient. Felix Pham M.D. DR: QUENTIN JOB#: [id number] CC:
--- NOTE | 2019-10-28 17:18 | Diagnostic Imaging Report ---
EXAM: XR Abdomen, 2 Views CLINICAL HISTORY: NGT TECHNIQUE: Frontal view of the abdomen/pelvis with upright view of the abdomen. COMPARISON: 10/28/2019. FINDINGS: Lower thorax: Mild cardiomegaly. Intraperitoneal space: No free air. Gastrointestinal tract: Nonspecific bowel gas pattern. No dilation. Bones/joints: Osteopenia. Vasculature: Atherosclerotic disease of the aortic knob. Tubes, lines and devices: NG tube is noted in place with both the side- port and its tip below the diaphragm. Other findings: There is hypoaeration. IMPRESSION: NG tube is in good position with its tip below the diaphragm.
--- NOTE | 2019-10-28 19:35 | NUR ---
HAND-OFF: Report given to Beth.
--- NOTE | 2019-10-28 20:00 | History and Physical Report ---
DATE OF ADMISSION: 10/27/2019 CHIEF COMPLAINT: Poor p.o. intake and lethargy. HISTORY OF PRESENT ILLNESS: This is an 83-year-old female who lives in [facility]. Patient has had poor p.o. intake for a while. The past week or so, she was not eating or drinking anything. She was started on IV fluids; however, she continued not to do well and finally decided to send her to the emergency room for evaluation and possible G-tube placement. In the emergency room, she was also found to be hypokalemic and she was admitted for further care. PAST MEDICAL HISTORY: Patient had some history of depression, diabetes. MEDICATIONS: Reviewed in EMR. SOCIAL HISTORY: No history of smoking or alcohol abuse. ALLERGIES: Alendronate and simvastatin. REVIEW OF SYSTEMS: Noncontributory. PHYSICAL EXAMINATION: GENERAL: Patient is an elderly female, in no acute distress. She appears to be lethargic in the emergency room. VITAL SIGNS: Blood pressure 94/64, pulse 104, temperature 97.9, respirations 22. HEENT: [place] conjunctivae. Anicteric sclerae. Mild dry mucous membranes. NECK: Supple. LUNGS: Clear to auscultation. HEART: S1, S2 without murmurs or rubs. ABDOMEN: Soft, nontender. EXTREMITIES: No cyanosis or edema. LABORATORY FINDINGS: The CBC shows a WBC of 13,400, hematocrit is 38.8, hemoglobin is 12.4, platelets 274,000. Chemistry panel shows a sodium 141, potassium 2.9, chloride 102, BUN is 3, creatinine 0.5, blood sugar is 138. The UA showed too numerous to count wbc's per high-power field and many bacteria. ASSESSMENT: This is an 83-year-old female who was admitted with failure to thrive, poor p.o. intake, significant weight loss, anorexia. She has also urinary tract infection, hypokalemia, volume depletion, lethargy. It is unclear if it is from volume depletion and UTI or any other neurological disease. PLAN: Patient will be hydrated with IV fluid and NG tube will be placed. Patient will be started on tube feeding. She will need to have a G-tube. Dr. Hamilton was called. Patient will get potassium with IV fluids, antibiotics IV for urinary tract infection. Labs will be followed and adjustments will be made in patient's regimen. Migel Pham M.D. DR: SERAFIN JOB#: [id number] CC:
--- NOTE | 2019-10-28 20:31 | NUR ---
NURSE NOTES: Received patient comfortably sleeping, on bilateral soft wrist restraints, tolerating her NGtube feeding well.
[2019-10-29 00:01] VITALS: BP 116/60
--- NOTE | 2019-10-29 00:14 | Consultation ---
DATE OF CONSULTATION: 10/28/2019 CONSULTING PHYSICIAN: Kar Nelson MD. HISTORY OF PRESENT ILLNESS: This is an 83-year-old female with a history of multiple medical issues including dementia, diabetes mellitus, UTI, failure to thrive, hyperkalemia who has been admitted to the hospital for medical stabilization. Patient was in bed she was arousable; however, was unable to remain engaged during evaluation and was dozing off. Patient recently admitted from [facility]. Patient has been having low appetite, poor memory, waxing waning consciousness. PAST PSYCHIATRIC HISTORY: Has a history of depression. ALLERGIES: Include to alendronate, sodium, and simvastatin. SUBSTANCE ABUSE HISTORY: No known history of illicit drug use or alcohol. MENTAL STATUS EXAMINATION: Patient has waxing waning consciousness. Mood is neutral. Affect is flat. Thought process, there is a paucity of thought content. Thought content, no suicidal or homicidal ideation. Cognition is impaired. Insight and judgment impaired. ASSESSMENT: [place] I Acute toxic encephalopathy/metabolic encephalopathy. Depressive disorder. [place] II Deferred. [place] III As above. [place] IV Low. [place] V 50. PLAN: 1. We will start patient on Zyprexa p.r.n. 2. Bilateral soft restraints as she pulled out her lines. 3. Discussed with Dr. Pham. Kar Nelson M.D. DR: MARCEL JOB#: [id number] CC:
[2019-10-29] MEDS: Piperacillin/Tazobactam 3.375 GM in NS 110 ML IVPB SCH ×3 (03:55→21:03)
[2019-10-29] MEDS: OLANZapine 2.5mg tab ORAL PRN ×2 (04:02→09:53)
[2019-10-29 04:37] VITALS: BP 115/59
[2019-10-29] MEDS: NovoLOG Insulin Flexpen SUBQ SCH ×4 (05:58→21:03)
[2019-10-29 06:55] LABS: ANION GAP 8 mmol/L (5-15); BLOOD UREA NITROGEN 8 mg/dL (7-18); CALCIUM 9.4 MG/DL (8.5-10.1); CARBON DIOXIDE 28 MMOL/L (21-32); CHLORIDE 107 MMOL/L (98-107); CREATININE 0.5 MG/DL (0.55-1.30); HEMATOCRIT 32.5 % (37.0-47.0); HEMOGLOBIN 10.5 G/DL (12.0-16.0); MEAN CORPUSCULAR VOLUME 100 FL (80-99); PLATELET COUNT 212 K/UL (150-450); POTASSIUM 3.8 MMOL/L (3.5-5.1); RED BLOOD COUNT 3.25 M/UL (4.20-5.40); RED CELL DISTRIBUTION WIDTH 15.7 % (11.6-14.8); SODIUM 143 MMOL/L (136-145); WHITE BLOOD COUNT 9.6 K/UL (4.8-10.8)
[2019-10-29 07:28] LABS: INR 1.1 (0.9-1.1)
--- NOTE | 2019-10-29 07:28 | NUR ---
HAND-OFF: Report given to BETTY Barrtet.
--- NOTE | 2019-10-29 07:30 | NUR ---
NURSE NOTES: Report received from BETTY Sweet. Patient received in bed, no SOB, responsive to verbal and tactile stimuli, on NGT patent an in place with Glucerna 1.2 @ 60 cc, FC in place draining adequate amount of urine, bed in lowest position with breaks engaged and alarm on, IV line on left hand in place, no s/sx of pain or discomfort upon assessment, will continue to monitor and proceed with plan of care, call light within reach.
[2019-10-29 08:00] VITALS: BP 116/56
--- NOTE | 2019-10-29 08:00 | Consultation ---
DATE OF CONSULTATION: 10/28/2019 GASTROLOGY CONSULTATION CHIEF COMPLAINT: I was asked to see this patient by Dr. Migel Pham for gastrostomy tube placement. HISTORY OF PRESENT ILLNESS: The patient is a debilitated 83-year-old white woman with multiple medical problems including advanced cognitive dysfunction, who is brought into the hospital due to failure to thrive and poor eating. The patient herself is a poor historian and does not offer much details. Her medical information is gathered from the chart. The patient has had a poor appetite and poor intake and has had progressive malnutrition. The family has agreed to gastrostomy tube placement. PAST MEDICAL HISTORY: History of diabetes and cognitive dysfunction. FAMILY HISTORY: Unavailable. SOCIAL HISTORY: The patient resides in a [facility]. The family looks after her affairs. REVIEW OF SYSTEMS: Otherwise negative. PHYSICAL EXAMINATION: GENERAL: A debilitated elderly white woman, in no distress. HEENT: Normocephalic and atraumatic. Sclerae anicteric. Oropharynx clear. NECK: Supple. CHEST: Clear to auscultation. CARDIOVASCULAR: Revealed a regular rate. ABDOMEN: Soft. EXTREMITIES: Revealed no edema. LABORATORY DATA: Noted. ASSESSMENT: This patient presents with failure to thrive, malnutrition, anorexia, and also advanced cognitive dysfunction. The patient will need long-term tube feeding for enteral nutrition and medication administration. This was discussed with the patient's family. In the meantime, the patient will be treated for urinary tract infection and also given IV fluids and laboratory parameters will be followed. A gastrostomy tube will be placed once consent obtained. RECOMMENDATIONS: Per above discussion and per orders written in the chart. Thank you for asking me to participate in the care of this patient. Ariadna Hamilton M.D. DR: HUSSEIN JOB#: [id number] CC: ERIK
--- NOTE | 2019-10-29 08:47 | Diagnostic Imaging Report ---
EXAM: CT Head Without Intravenous Contrast CLINICAL HISTORY: AMS TECHNIQUE: Axial computed tomography images of the head/brain without intravenous contrast. CTDI is 53.40 mGy and DLP is 992.10 mGy-cm. One or more of the following dose reduction techniques were used: automated exposure control, adjustment of the mA and/or kV according to patient size, use of iterative reconstruction technique. COMPARISON: No relevant prior studies available. FINDINGS: There is no acute intracranial hemorrhage. 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 There is no midline shift or other mass effect. The ventricles and sulci are commensurate with age. There is age-related cerebral volume loss. There is nonspecific white matter hypoattenuation, indicative of chronic ischemic microangiopathy. The visualized orbits appear grossly unremarkable. The calvarium is intact. The visualized paranasal sinuses and mastoid air cells are grossly clear. IMPRESSION: No acute intracranial hemorrhage, midline shift, or mass effect. 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
[2019-10-29] MEDS: D5 1/2NS w/KCl 40meq 1000ml 1,000 ML IV SCH (08:53)
[2019-10-29] MEDS: Heparin 5000 units/ml inj SUBQ SCH ×2 (08:54→21:01)
[2019-10-29 12:00] VITALS: BP 135/70
--- NOTE | 2019-10-29 12:56 | General Progress Note ---
Assessment/Plan Problem List: (1) UTI (urinary tract infection) ICD Codes: N39.0 - Urinary tract infection, site not specified SNOMED: 79653493 Qualifiers: Qualified Codes: N39.0 - Urinary tract infection, site not specified (2) Severe protein-calorie malnutrition ICD Codes: E43 - Unspecified severe protein-calorie malnutrition SNOMED: 928852179, 398347831, 173508861 (3) Failure to thrive SNOMED: 57780944 Qualifiers: Qualified Codes: R62.7 - Adult failure to thrive (4) Toxic metabolic encephalopathy ICD Codes: G92 - Toxic encephalopathy SNOMED: 445859568 (5) Diabetes mellitus ICD Codes: E11.9 - Type 2 diabetes mellitus without complications SNOMED: 60942061 (6) Hypokalemia ICD Codes: E87.6 - Hypokalemia SNOMED: 13534384 Assessment/Plan: DC IVF TF Neurology and psych F/U follow labs SSI Discussed with RN abxs Await GT Subjective Allergies: Coded Allergies: ALENDRONATE SODIUM (Verified Allergy, Unknown, 10/27/19) SIMVASTATIN (Verified Allergy, Unknown, 10/27/19) Subjective got zyprexa lethargic Objective Last 24 Hour Vital Signs Date Time Temp Pulse Resp B/P (MAP) Pulse Ox O2 Delivery O2 Flow Rate FiO2 10/29/19 12:00 97.9 96 20 135/70 (91) 96 10/29/19 10:28 97.8 10/29/19 09:00 Room Air 10/29/19 08:00 97.8 89 19 116/56 (76) 96 10/29/19 04:37 98.5 94 20 115/59 (77) 94 10/29/19 00:01 98.7 93 20 116/60 (78) 94 10/28/19 20:40 Room Air 10/28/19 20:20 98.9 99 20 122/60 (80) 93 10/28/19 16:00 97.9 81 18 121/59 (79) 98 Intake and Output 10/28/19 10/29/19 19:00 07:00 Intake Total 60 ml 1415.0 ml Output Total 600 ml 300 ml Balance -540 ml 1115.0 ml Free Water 120 ml IV Total 575.0 ml Tube Feeding 60 ml 720 ml Output Urine Total 600 ml 300 ml # Voids 1 Laboratory Tests 10/28/19 19:00: Vitamin D 25-Hydroxy [Pending], 25-Hydroxy Vitamin D2 [Pending], 25-Hydroxy Vitamin D3 [Pending], Rapid Plasma Reagin [Pending] 10/29/19 05:45: White Blood Count 9.6, Red Blood Count 3.25L, Hemoglobin 10.5L, Hematocrit 32.5L , Mean Corpuscular Volume 100H, Mean Corpuscular Hemoglobin 32.3H, Mean Corpuscular Hemoglobin Concent 32.2, Red Cell Distribution Width 15.7H, Platelet Count 212, Mean Platelet Volume 7.9, Neutrophils (%) (Auto) , Lymphocytes (%) (Auto) , Monocytes (%) (Auto) , Eosinophils (%) (Auto) , Basophils (%) (Auto) , Differential Total Cells Counted 100, Neutrophils % ( Manual) 46, Lymphocytes % (Manual) 19L, Monocytes % (Manual) 31H, Eosinophils % (Manual) 0, Basophils % (Manual) 0, Band Neutrophils 4, Platelet Estimate Adequate, Platelet Morphology Normal, Anisocytosis 1+, Macrocytosis 1+, Prothrombin Time 11.7H, Prothromb Time International Ratio 1.1, Activated Partial Thromboplast Time 30, Sodium Level 143, Potassium Level 3.8, Chloride Level 107, Carbon Dioxide Level 28, Anion Gap 8, Blood Urea Nitrogen 8, Creatinine 0.5L, Estimat Glomerular Filtration Rate > 60, Glucose Level 189H, Calcium Level 9.4 Height (Feet): 5 Height (Inches): 2.00 Weight (Pounds): 116 Cardiovascular: normal rate Respiratory/Chest: lungs clear, crackles/rales Edema: 1+ Generalized Migel Pham MD Oct 29, 2019 12:56
--- NOTE | 2019-10-29 15:17 | Neurology Progress Note ---
Interim History Interim History Interim History Ms. Alessandra Veliz is an 83-year-old, right-handed, lady, who does have a past history of diabetes mellitus and cognitive dysfunction. At her baseline she is able to communicate and do a little bit of walking. [facility] where she was noted to be increasingly weak, more confused and agitated, not her usual self. When she was first evaluated by me on 10/28/2019 it was felt that she had underlying cognitive dysfunction most probably related to a primary degenerative process with a superadded toxic encephalopathy related to her acute urinary tract infection. As per her nurse she continues to be confused disoriented and at times agitated. She is being fed through an NG tube and is in two-point soft restraints. She tells me that she feels well at this point in time. She however is quite oblivious as to why she is here and cannot give me any further history. Review of Systems Neuro Review of Systems Unable to obtain. Objective Physical Exam Last Vital Signs Date Time Temp Pulse Resp B/P (MAP) Pulse Ox O2 Delivery O2 Flow Rate FiO2 10/29/19 12:00 97.9 96 20 135/70 (91) 96 10/29/19 09:00 Room Air Laboratory Tests Test 10/28/19 19:00 10/29/19 05:45 Vitamin D 25-Hydroxy Pending 25-Hydroxy Vitamin D2 Pending 25-Hydroxy Vitamin D3 Pending Rapid Plasma Reagin Pending White Blood Count 9.6 K/UL (4.8-10.8) Red Blood Count 3.25 M/UL (4.20-5.40) L Hemoglobin 10.5 G/DL (12.0-16.0) L Hematocrit 32.5 % (37.0-47.0) L Mean Corpuscular Volume 100 FL (80-99) H Mean Corpuscular Hemoglobin 32.3 PG (27.0-31.0) H Mean Corpuscular Hemoglobin Concent 32.2 G/DL (32.0-36.0) Red Cell Distribution Width 15.7 % (11.6-14.8) H Platelet Count 212 K/UL (150-450) Mean Platelet Volume 7.9 FL (6.5-10.1) Neutrophils (%) (Auto) % (45.0-75.0) Lymphocytes (%) (Auto) % (20.0-45.0) Monocytes (%) (Auto) % (1.0-10.0) Eosinophils (%) (Auto) % (0.0-3.0) Basophils (%) (Auto) % (0.0-2.0) Differential Total Cells Counted 100 Neutrophils % (Manual) 46 % (45-75) Lymphocytes % (Manual) 19 % (20-45) L Monocytes % (Manual) 31 % (1-10) H Eosinophils % (Manual) 0 % (0-3) Basophils % (Manual) 0 % (0-2) Band Neutrophils 4 % (0-8) Platelet Estimate Adequate Platelet Morphology Normal Anisocytosis 1+ Macrocytosis 1+ Prothrombin Time 11.7 SEC (9.30-11.50) H Prothromb Time International Ratio 1.1 (0.9-1.1) Activated Partial Thromboplast Time 30 SEC (23-33) Sodium Level 143 MMOL/L (136-145) Potassium Level 3.8 MMOL/L (3.5-5.1) Chloride Level 107 MMOL/L (98-107) Carbon Dioxide Level 28 MMOL/L (21-32) Anion Gap 8 mmol/L (5-15) Blood Urea Nitrogen 8 mg/dL (7-18) Creatinine 0.5 MG/DL (0.55-1.30) L Estimat Glomerular Filtration Rate > 60 mL/min (>60) Glucose Level 189 MG/DL (74-106) H Calcium Level 9.4 MG/DL (8.5-10.1) Neurologic Exam Objective PHYSICAL EXAMINATION: GENERAL: The patient is a well developed, but lean lady lying in bed screaming from time to time for no apparent reason. HEAD: Normocephalic and atraumatic. NECK: No neck rigidity was observed. EENT: Benign. EXTREMITIES: Benign. NEUROLOGIC EXAMINATION: MENTAL STATUS EXAMINATION: She was awake but not completely alert. She was oriented to self only. She had no idea of where she was or the date was. She was able to recall 3/3 words immediately but could not remember any of them in 1 minute and 3 minutes. She was unable to tell me who the president president was or who any presidents were. She was unable to cooperate for further mental status testing. SPEECH: She had a mild dysarthria. LANGUAGE: Language was impossible to test because of inability to cooperate. CRANIAL NERVE EXAMINATION: II: She did blink to threat but was unable to cooperate for confrontation testing. III, IV, : External ocular movements were full and pupils 3 mm in diameter equal, round, regular and reactive to light. V: The facial sensations were normal, and the temporales, masseters and pterygoids functioned normally. VII: The facial expressions were normal and no facial asymmetry was seen. VIII: She was able to hear well bilaterally and had no nystagmus. IX: The palate moved symmetrically on phonation. X: There was no hoarseness of voice. XI: The sternocleidomastoids and trapezii functioned normally. XII: The tongue was in the midline without any fasciculations or atrophy. MOTOR SYSTEM: The tone was normal in all 4 extremities. Examination of muscle mass revealed generalized muscle wasting. In addition she also had mild bilateral ankle cord contractures. Examination of power would not be performed formally. She did move all 4 extremities and had fair handgrips bilaterally. SENSORY EXAMINATION: She responded appropriately to deep painful stimuli. She was unable to cooperate for other sensory modalities. COORDINATION: She did not cooperate for coordination testing. REFLEXES: 0 at the biceps, triceps, brachioradialis, knees and ankles. The plantar responses were flexor bilaterally. STANCE: Could not be tested. GAIT: Could not be tested. ABNORMAL MOVEMENTS: None Impression/Recommendations Diagnostic Impression DIAGNOSTIC IMPRESSION: 1. Ms. Alessandra Veliz is an 83-year-old, right-handed, lady, who does have a past history of diabetes mellitus and cognitive dysfunction. At her baseline she is able to communicate and do a little bit of walking. 2. She lives in a [facility] where she was noted to be increasingly weak, more confused and agitated, not her usual self. 3. As per her nurse she continues to be confused disoriented and at times agitated. She is being fed through an NG tube and is in two-point soft restraints. She tells me that she feels well. She however is quite oblivious as to why she is here and cannot give me any further history. 4. On neurological examination, at this time, She is awake but not completely alert. She is oriented to self only. She has no idea of where she is or the date is. She has severe problems with recent and remote memory. She is unable to cooperate for further mental status testing. She does not demonstrate any definite focal findings on her cranial nerve examination. She is generally weak but does not demonstrate any focal weakness. She does have bilateral ankle cord contractures. She responds appropriately to deep pain but is unable to cooperate further sensory modalities. Her deep tendon reflexes are globally absent but her plantar responses are flexor. She is unable to cooperate for coordination stance and gait testing. 5. Laboratory data obtained on my initial evaluation revealed a WBC count elevated at 16,000, a low hemoglobin at 11.7, elevated glucose at 198, elevated hemoglobin A1c at 6.6%, normal TSH at 2.929. The urinalysis reveals 3+ leukocyte esterase, 5-10 RBCs and too numerous to count WBCs per high-power field. 6. Further laboratory tests have revealed a normal vitamin B-12 level, low folate, and an elevated ESR. 7. The EEG performed on 10/28/2019 revealed findings compatible with a mild to moderate toxic metabolic encephalopathy and in addition a left mid temporal epileptogenic focus with infrequent interictal discharges. 8. The CT scan of the brain without contrast performed on 10/29/2019 revealed atrophy and some deep white matter changes but no acute pathology. 9. The patient's history, neurological examination, and laboratory data, are most consistent with underlying cognitive dysfunction most probably related to a primary degenerative process with a superadded toxic encephalopathy related to her acute urinary tract infection. Recommendations RECOMMENDATIONS: 1. Continue present management. 2. Folic acid 1 mg daily for folic acid deficiency. 3. Continue antibiotic treatment and fluid and electrolyte correction. 4. Observe closely. Isak Go M.D., M.S.P.H. Neurologist & Clinical Neurophysiologist Isak Go MD Oct 29, 2019 15:16
[2019-10-29 16:00] VITALS: BP 126/60
--- NOTE | 2019-10-29 18:44 | NUR ---
NURSE NOTES: Patient was seen by Dr. Apolonia Pham today, MD was informed of positive ESBL urine and MD stated his brother (ID doctor Cindy Pham) is aware. Will cont to monitor.
--- NOTE | 2019-10-29 19:20 | NUR ---
HAND-OFF: Report given to BETTY Sweet. Patient in bed without s/sx of distress, bed in lowest position with breaks engaged and alarm on. Plan of care endorsed.
--- NOTE | 2019-10-29 19:30 | Electroencephalogram ---
DATE OF PROCEDURE: 10/28/2019 REQUESTING PHYSICIAN: Migel Pham M.D. HISTORY: This EEG was performed on an 83-year-old lady who was hospitalized for an alteration in her mental state with increasing confusion, agitation, and disorientation. She does have a prior history of diabetes mellitus and cognitive dysfunction, and during this hospitalization was noted to have a urinary tract infection. The purpose of this EEG was to evaluate the patient for the degree and type of cerebral dysfunction. TECHNICAL NOTE: This EEG was performed on a [employer] with electrodes placed on the scalp according to the International 10-20 system. Psdqu-[id number] and gvigi-wc-[id number] montages were used. The EEG was technically satisfactory and was performed in the awake, drowsy, and sleep states. OBSERVATIONS: In the best awake state, the background activity consisted of 7-7.5-Hz posterior rhythmic theta activity. Drowsiness was characterized by irregular 4-5-Hz theta with some intermixed delta frequencies and triphasic waveforms with an [id number]-br-[id number] gradient. In addition, infrequent T3 sharp discharges were also noted. Stage II sleep was characterized by further slowing of the background in the delta and theta range, the presence of vertex waves, 12-Hz sleep spindles, and continued infrequent T3 sharp discharges. IMPRESSION: This is an abnormal EEG characterized by: 1. Slowing of the background in the 7-7.5-Hz theta range in the best awake state. 2. The presence of triphasic waves. 3. The presence of infrequent T3 sharp wave discharges seen during drowsiness and sleep. COMMENT: This study is consistent with: 1. A mild to moderate encephalopathy - with a toxic/metabolic component as evidenced by the triphasic waveforms. 2. A left midtemporal epileptogenic focus with interictal discharges seen on this EEG. Isak Go M.D., M.S.P.H. Clinical Neurophysiologist DR: SANDEEP JOB#: [id number] [email or web address]
--- NOTE | 2019-10-29 19:54 | NUR ---
NURSE NOTES: Received patient comfortably and calmly sleeping, tolerating her NGtube feeding well.
[2019-10-29 20:28] VITALS: BP 116/53
--- NOTE | 2019-10-29 20:34 | General Progress Note ---
Assessment/Plan Assessment/Plan: Assessment - OBS - anorexia - malnutrition - macrocytic anemia with normal B12 Recommendations - continue NGT feeds - elevate HOB - PEG Thursday at 11 am Subjective Allergies: Coded Allergies: ALENDRONATE SODIUM (Verified Allergy, Unknown, 10/27/19) SIMVASTATIN (Verified Allergy, Unknown, 10/27/19) Subjective Above noted patient being fed by NGT d/w Granddaughter Kathleen, who states she signs the papers for this patient PEG procedure explained at length, all questions answered Objective Last 24 Hour Vital Signs Date Time Temp Pulse Resp B/P (MAP) Pulse Ox O2 Delivery O2 Flow Rate FiO2 10/29/19 20:15 Room Air 10/29/19 16:00 97.5 94 20 126/60 (82) 97 10/29/19 12:00 97.9 96 20 135/70 (91) 96 10/29/19 10:28 97.8 10/29/19 09:00 Room Air 10/29/19 08:00 97.8 89 19 116/56 (76) 96 10/29/19 04:37 98.5 94 20 115/59 (77) 94 10/29/19 00:01 98.7 93 20 116/60 (78) 94 10/28/19 20:40 Room Air Intake and Output 10/28/19 10/29/19 19:00 07:00 Intake Total 60 ml 1415.0 ml Output Total 600 ml 300 ml Balance -540 ml 1115.0 ml Free Water 120 ml IV Total 575.0 ml Tube Feeding 60 ml 720 ml Output Urine Total 600 ml 300 ml # Voids 1 Laboratory Tests 10/29/19 05:45: White Blood Count 9.6, Red Blood Count 3.25L, Hemoglobin 10.5L, Hematocrit 32.5L , Mean Corpuscular Volume 100H, Mean Corpuscular Hemoglobin 32.3H, Mean Corpuscular Hemoglobin Concent 32.2, Red Cell Distribution Width 15.7H, Platelet Count 212, Mean Platelet Volume 7.9, Neutrophils (%) (Auto) , Lymphocytes (%) (Auto) , Monocytes (%) (Auto) , Eosinophils (%) (Auto) , Basophils (%) (Auto) , Differential Total Cells Counted 100, Neutrophils % ( Manual) 46, Lymphocytes % (Manual) 19L, Monocytes % (Manual) 31H, Eosinophils % (Manual) 0, Basophils % (Manual) 0, Band Neutrophils 4, Platelet Estimate Adequate, Platelet Morphology Normal, Anisocytosis 1+, Macrocytosis 1+, Prothrombin Time 11.7H, Prothromb Time International Ratio 1.1, Activated Partial Thromboplast Time 30, Sodium Level 143, Potassium Level 3.8, Chloride Level 107, Carbon Dioxide Level 28, Anion Gap 8, Blood Urea Nitrogen 8, Creatinine 0.5L, Estimat Glomerular Filtration Rate > 60, Glucose Level 189H, Calcium Level 9.4 Height (Feet): 5 Height (Inches): 2.00 Weight (Pounds): 116 Objective Elderly WW NCAT supple CTA RRR abd soft ND NT no edema Ariadna Hamilton MD Oct 29, 2019 20:34
[2019-10-30 00:07] VITALS: BP 101/49
[2019-10-30 04:00] VITALS: BP 109/65
[2019-10-30] MEDS: Piperacillin/Tazobactam 3.375 GM in NS 110 ML IVPB SCH ×3 (04:00→20:58)
[2019-10-30] MEDS: NovoLOG Insulin Flexpen SUBQ SCH ×4 (05:51→20:57)
--- NOTE | 2019-10-30 07:05 | NUR ---
HAND-OFF: Report given to Jaquan Bates RN.
--- NOTE | 2019-10-30 07:10 | NUR ---
NURSE NOTES: Received report from RN, Micki. Pt received lying in hospital bed. Pt is asleep. AO x 0, on RA with no s/s of respiratory distress. Pt has NGT on L nostril insertion measuring 66 cm in length running Glucerna 1.2 at 60 ml/hr. Pt has stover catheter. Sacral pressure injury present. pIV on L hand 24 g running Zosyn IV. Edema to B hands. Will continue to monitor. Pt has B soft wrist restraints. Pt is planned for PEG placement tomorrow 10/31/19 at 11am. Bed in lowest position, bed alarm on. Will continue POC.
[2019-10-30 08:00] VITALS: BP 116/57
[2019-10-30] MEDS: Heparin 5000 units/ml inj SUBQ SCH ×2 (09:14→20:55)
[2019-10-30 12:00] VITALS: BP 113/59
[2019-10-30] MEDS: traMADol 50mg tab ORAL PRN (12:03)
--- NOTE | 2019-10-30 13:28 | General Progress Note ---
Assessment/Plan Assessment/Plan: Assessment - OBS - anorexia - malnutrition - macrocytic anemia with normal B12 Recommendations - continue NGT feeds - elevate HOB - PEG Thursday at 11 am Subjective Allergies: Coded Allergies: ALENDRONATE SODIUM (Verified Allergy, Unknown, 10/27/19) SIMVASTATIN (Verified Allergy, Unknown, 10/27/19) Subjective Above noted patient being fed by NGT PEG tomorrow at 11 am Objective Last 24 Hour Vital Signs Date Time Temp Pulse Resp B/P (MAP) Pulse Ox O2 Delivery O2 Flow Rate FiO2 10/30/19 12:00 99.9 96 21 113/59 (77) 95 10/30/19 09:00 Room Air 10/30/19 08:00 97.7 123 22 116/57 (76) 96 10/30/19 04:00 98.0 107 22 109/65 (80) 96 10/30/19 00:07 97.8 115 21 101/49 (66) 95 10/29/19 20:28 98.1 99 21 116/53 (74) 94 10/29/19 20:15 Room Air 10/29/19 16:00 97.5 94 20 126/60 (82) 97 Intake and Output 10/29/19 10/30/19 19:00 07:00 Intake Total 1115.0 ml 972.5 ml Output Total 400 ml Balance 715.0 ml 972.5 ml Free Water 120 ml 60 ml IV Total 335.0 ml 192.5 ml Tube Feeding 660 ml 720 ml Output Urine Total 400 ml # Voids 3 # Bowel Movements 2 Height (Feet): 5 Height (Inches): 2.00 Weight (Pounds): 116 Objective Elderly WW NCAT supple CTA RRR abd soft ND NT no edema Ariadna Hamilton MD Oct 30, 2019 13:28
--- NOTE | 2019-10-30 13:34 | Neurology Progress Note ---
Interim History Interim History Interim History Ms. Alessandra Veliz is an 83-year-old, right-handed, lady, who does have a past history of diabetes mellitus and cognitive dysfunction. At her baseline she is able to communicate and do a little bit of walking. She lives in a assisted where she was noted to be increasingly weak, more confused and agitated, not her usual self. When she was first evaluated by me on 10/28/2019 it was felt that she had underlying cognitive dysfunction most probably related to a primary degenerative process with a superadded toxic encephalopathy related to her acute urinary tract infection. She continues to be confused, disoriented, and at times agitated. She is being fed through an NG tube and is in two-point soft restraints. She says she feels well. She is quite oblivious as to why she is here and cannot give me any further history. Review of Systems Neuro Review of Systems Unable to obtain. Objective Physical Exam Last Vital Signs Date Time Temp Pulse Resp B/P (MAP) Pulse Ox O2 Delivery O2 Flow Rate FiO2 10/30/19 12:00 99.9 96 21 113/59 (77) 95 10/30/19 09:00 Room Air Neurologic Exam Objective PHYSICAL EXAMINATION: GENERAL: She is a well developed, but lean lady lying in bed in no acute distress. HEAD: Normocephalic and atraumatic. NECK: No neck rigidity was observed. EENT: Benign. EXTREMITIES: Benign. NEUROLOGIC EXAMINATION: MENTAL STATUS EXAMINATION: She was awake but not completely alert. She was oriented to self only. She had no idea of where she was or the date was. She was able to recall 3/3 words immediately but could not remember any of them in 1 minute and 3 minutes. She was unable to tell me who the president president was or who any presidents were. She was unable to cooperate for further mental status testing. SPEECH: She had a mild dysarthria. LANGUAGE: Language was impossible to test because of inability to cooperate. CRANIAL NERVE EXAMINATION: II: She did blink to threat but was unable to cooperate for confrontation testing. III, IV, : External ocular movements were full and pupils 3 mm in diameter equal, round, regular and reactive to light. V: The facial sensations were normal, and the temporales, masseters and pterygoids functioned normally. VII: The facial expressions were normal and no facial asymmetry was seen. VIII: She was able to hear well bilaterally and had no nystagmus. IX: The palate moved symmetrically on phonation. X: There was no hoarseness of voice. XI: The sternocleidomastoids and trapezii functioned normally. XII: The tongue was in the midline without any fasciculations or atrophy. MOTOR SYSTEM: The tone was normal in all 4 extremities. Examination of muscle mass revealed generalized muscle wasting. In addition she also had mild bilateral ankle cord contractures. Examination of power could not be performed formally. She did move all 4 extremities and had fair handgrips bilaterally. SENSORY EXAMINATION: She responded appropriately to deep painful stimuli. She was unable to cooperate for other sensory modalities. COORDINATION: She did not cooperate for coordination testing. REFLEXES: 0 at the biceps, triceps, brachioradialis, knees and ankles. The plantar responses were flexor bilaterally. STANCE: Could not be tested. GAIT: Could not be tested. ABNORMAL MOVEMENTS: None Impression/Recommendations Diagnostic Impression DIAGNOSTIC IMPRESSION: 1. Ms. Alessandra Veliz is an 83-year-old, right-handed, lady, who does have a past history of diabetes mellitus and cognitive dysfunction. At her baseline she is able to communicate and do a little bit of walking. 2. She lives in a assisted where she was noted to be increasingly weak, more confused and agitated, not her usual self. 3. She continues to be confused, disoriented, and at times agitated. She is being fed through an NG tube and is in two-point soft restraints. She says she feels well. She is quite oblivious as to why she is here and cannot give me any further history. 4. On neurological examination, at this time, She is awake but not completely alert. She is oriented to self only. She has no idea of where she is or the date is. She has severe problems with recent and remote memory. She is unable to cooperate for further mental status testing. She does not demonstrate any definite focal findings on her cranial nerve examination. She is generally weak but does not demonstrate any focal weakness. She does have bilateral ankle cord contractures. She responds appropriately to deep pain but is unable to cooperate for other sensory modalities. Her deep tendon reflexes are globally absent but her plantar responses are flexor. She is unable to cooperate for coordination stance and gait testing. 5. Laboratory data obtained on my initial evaluation revealed a WBC count elevated at 16,000, a low hemoglobin at 11.7, elevated glucose at 198, elevated hemoglobin A1c at 6.6%, normal TSH at 2.929. The urinalysis reveals 3+ leukocyte esterase, 5-10 RBCs and too numerous to count WBCs per high-power field. 6. Further laboratory tests have revealed a normal vitamin B-12 level, low folate, and an elevated ESR. 7. The EEG performed on 10/28/2019 revealed findings compatible with a mild to moderate toxic metabolic encephalopathy and in addition a left mid temporal epileptogenic focus with infrequent interictal discharges. 8. The CT scan of the brain without contrast performed on 10/29/2019 revealed atrophy and some deep white matter changes but no acute pathology. 9. The patient's history, neurological examination, and laboratory data, are most consistent with underlying cognitive dysfunction most probably related to a primary degenerative process with a superadded toxic encephalopathy related to her acute urinary tract infection. 10. Her encephalopathy is minimally better today. Recommendations RECOMMENDATIONS: 1. Continue present management. 2. Folic acid 1 mg daily for folic acid deficiency. 3. Continue antibiotic treatment and fluid and electrolyte correction. 4. Observe closely. Isak Go M.D., M.S.P.H. Neurologist & Clinical Neurophysiologist Isak Go MD Oct 30, 2019 13:34
[2019-10-30 16:00] VITALS: BP 137/64
--- NOTE | 2019-10-30 16:01 | Infectious Diseases Prog Note ---
Assessment/Plan Assessment/Plan IMPRESSION: Sepsis with leukocytosis, and tachycardia. E coli urinary tract infection. Deep tissue injury in sacral buttock area. Diabetes mellitus type 2, Dementia, osteoporosis, Toxic encephalopathy RECOMMENDATION: Continue with Zosyn. Subjective ROS Limited/Unobtainable: Yes Constitutional: Denies: fever Allergies: Coded Allergies: ALENDRONATE SODIUM (Verified Allergy, Unknown, 10/27/19) SIMVASTATIN (Verified Allergy, Unknown, 10/27/19) Objective Last 24 Hour Vital Signs Date Time Temp Pulse Resp B/P (MAP) Pulse Ox O2 Delivery O2 Flow Rate FiO2 10/30/19 12:00 99.9 96 21 113/59 (77) 95 10/30/19 09:00 Room Air 10/30/19 08:00 97.7 123 22 116/57 (76) 96 10/30/19 04:00 98.0 107 22 109/65 (80) 96 10/30/19 00:07 97.8 115 21 101/49 (66) 95 10/29/19 20:28 98.1 99 21 116/53 (74) 94 10/29/19 20:15 Room Air 10/29/19 16:00 97.5 94 20 126/60 (82) 97 Height (Feet): 5 Height (Inches): 2.00 Weight (Pounds): 116 General Appearance: no acute distress HEENT: mucous membranes moist Respiratory/Chest: lungs clear Cardiovascular: normal rate Abdomen: soft, non tender Extremities: no edema Neurologic/Psychiatric: other - on restraint Current Medications Medications (Trade) Dose Ordered Sig/Zeferino Route PRN Reason Start Time Stop Time Status Last Admin Dose Admin Acetaminophen (Tylenol) 650 mg Q4H PRN ORAL Mild Pain (Pain Scale 1-3) 10/27/19 17:00 11/26/19 16:59 10/29/19 09:54 Dextrose (Dextrose 50%) 25 ml Q30M PRN IV Hypoglycemia 10/27/19 17:00 01/25/20 16:59 Dextrose (Dextrose 50%) 50 ml Q30M PRN IV Hypoglycemia 10/27/19 17:00 01/25/20 16:59 Folic Acid (Folate) 1 mg DAILY ORAL 10/30/19 13:30 11/29/19 13:29 Heparin Sodium (Porcine) (Heparin 5000 units/ml) 5,000 units EVERY 12 HOURS SUBQ 10/27/19 17:00 12/11/19 16:59 10/30/19 09:14 Insulin Aspart (NovoLOG) BEFORE MEALS AND HS SUBQ 10/27/19 21:00 01/25/20 20:59 10/30/19 11:43 Olanzapine (ZyPREXA) 2.5 mg Q6H PRN ORAL agitation 10/28/19 15:00 12/12/19 14:59 10/29/19 09:53 Piperacillin Sod/ Tazobactam Sod 3.375 gm/Sodium Chloride 110 ml @ 27.5 mls/hr EVERY 8 HOURS IVPB 10/27/19 18:00 11/01/19 17:59 10/30/19 15:06 Tramadol HCl (Ultram) 50 mg Q8H PRN ORAL Moderate Pain (Pain Scale 4-6) 10/28/19 11:15 11/04/19 11:14 10/30/19 12:03 Felix Pham MD Oct 30, 2019 16:01
--- NOTE | 2019-10-30 17:59 | General Progress Note ---
Assessment/Plan Assessment/Plan: Problem List: (1) UTI (urinary tract infection) ICD Codes: N39.0 - Urinary tract infection, site not specified SNOMED: 14324645 Qualifiers: Qualified Codes: N39.0 - Urinary tract infection, site not specified (2) Severe protein-calorie malnutrition ICD Codes: E43 - Unspecified severe protein-calorie malnutrition SNOMED: 551687553, 948238358, [id number] (3) Failure to thrive SNOMED: 89379083 Qualifiers: Qualified Codes: R62.7 - Adult failure to thrive (4) Toxic metabolic encephalopathy ICD Codes: G92 - Toxic encephalopathy SNOMED: 607636991 (5) Diabetes mellitus ICD Codes: E11.9 - Type 2 diabetes mellitus without complications SNOMED: 43478062 (6) Hypokalemia ICD Codes: E87.6 - Hypokalemia SNOMED: 64032815 Assessment/Plan: DC IVF TF Neurology and psych F/U follow labs SSI Discussed with RN abxs Await GT Subjective Allergies: Coded Allergies: ALENDRONATE SODIUM (Verified Allergy, Unknown, 10/27/19) SIMVASTATIN (Verified Allergy, Unknown, 10/27/19) All Systems: reviewed and negative except above Objective Last 24 Hour Vital Signs Date Time Temp Pulse Resp B/P (MAP) Pulse Ox O2 Delivery O2 Flow Rate FiO2 10/30/19 16:00 98.2 105 20 137/64 (88) 97 10/30/19 12:00 99.9 96 21 113/59 (77) 95 10/30/19 09:00 Room Air 10/30/19 08:00 97.7 123 22 116/57 (76) 96 10/30/19 04:00 98.0 107 22 109/65 (80) 96 10/30/19 00:07 97.8 115 21 101/49 (66) 95 10/29/19 20:28 98.1 99 21 116/53 (74) 94 10/29/19 20:15 Room Air Intake and Output 10/29/19 10/30/19 19:00 07:00 Intake Total 1115.0 ml 972.5 ml Output Total 400 ml Balance 715.0 ml 972.5 ml Free Water 120 ml 60 ml IV Total 335.0 ml 192.5 ml Tube Feeding 660 ml 720 ml Output Urine Total 400 ml # Voids 3 # Bowel Movements 2 Laboratory Tests 10/29/19 20:40: POC Whole Blood Glucose 147H 10/30/19 05:30: POC Whole Blood Glucose 324H 10/30/19 16:34: POC Whole Blood Glucose 239H Height (Feet): 5 Height (Inches): 2.00 Weight (Pounds): 116 General Appearance: no apparent distress EENT: PERRL/EOMI, normal ENT inspection Neck: non-tender, normal alignment Cardiovascular: normal peripheral pulses, normal rate, regular rhythm Respiratory/Chest: chest wall non-tender, lungs clear Abdomen: normal bowel sounds, non tender, soft Lovely Haynes M.D. Oct 30, 2019 17:59
--- NOTE | 2019-10-30 18:08 | NUR ---
NURSE NOTES: Contacted Dr. Hamilton to f/u on consent order for patient's scheduled PEG placement tomorrow. Per Dr. Hamilton, he will enter shortly. Will endorse to next shift nurse.
--- NOTE | 2019-10-30 19:20 | NUR ---
HAND-OFF: Report given to BETTY Sweet. Endorsed POC and need for consent for planned PEG tomorrow with order still pending.
[2019-10-30 20:00] VITALS: BP 104/54
--- NOTE | 2019-10-30 20:00 | NUR ---
NURSE NOTES: Received patient comfortably resting in bed, tolerating her NGtube feeding well.
--- NOTE | 2019-10-30 21:30 | NUR ---
NURSE NOTES: Got telephone consent from her grand daughter for the procedure tomorrow. Dr Hamilton ordered for STAT Covid test, and per Nursing Supervisor Taping it will be done tomorrow morning.
[2019-10-31] VITALS (10 sets, daily range): BP systolic 113–152; BP diastolic 58–77
--- NOTE | 2019-10-31 01:19 | NUR ---
HAND-OFF: Report given to Karoline Zaldivar RN.
--- NOTE | 2019-10-31 01:25 | NUR ---
NURSE NOTES: Received report from maribell garcia. patient asleep on semi-fowlers position. NPO post midnight. with bilateral soft wrist restraints, no injury noted.followed protocol on restraints. with stover catheter noted draining well. on room air, no sob. with ngt noted. per maribell garcia" patient is on npo post midnight for upcoming procedure tomorrow at 11am; consent signed". maribell garcia held the feeding at midnight and held the heparin. with iv line on the right forearm running zosyn at the moment. per jose" covid rapid test was ordered and should be done later during the dayshift per protocol". call light and light button within easy reach. bed locked and in lowest position. will continue plan of care.
[2019-10-31] MEDS: Piperacillin/Tazobactam 3.375 GM in NS 110 ML IVPB SCH ×3 (05:41→21:01)
[2019-10-31] MEDS: NovoLOG Insulin Flexpen SUBQ SCH ×4 (05:51→20:53)
[2019-10-31] MEDS ORDERED: sitaGLIPtin 25mg tab ORAL SCH (06:30)
--- NOTE | 2019-10-31 07:20 | NUR ---
Report given to maribell noel.patient is asleep. no sob. call light and light button within easy reach. on npo. plan of care endorsed. Addendum: 10/31/19 at 0740 by Sophie Zaldivar RN HAND-OFF notes
--- NOTE | 2019-10-31 07:40 | NUR ---
HAND-OFF: Report given to maribell noel.patient is asleep. no sob. call light and light button within easy reach. on npo. plan of care endorsed. .
--- NOTE | 2019-10-31 08:07 | NUR ---
NURSE NOTES: Report received from Karoline HERNÁNDEZ. Patient seen on rounds, AxOx1-2, not in distress, no outward sx of pain. NGT noted on left nares at level 67cm. Pt has been NPO post midnight for anticipated EGD and PEG placement today. PIV on right forearm patent and intact. Hemphill catheter secured and draining well. Optifoam on sacrum for prophylaxis. Bed low and locked, siderails up x2, zone alarms on 1, will continue to monitor.
[2019-10-31 08:49] LABS: ANION GAP 6 mmol/L (5-15); BLOOD UREA NITROGEN 9 mg/dL (7-18); CALCIUM 10.5 MG/DL (8.5-10.1); CARBON DIOXIDE 30 MMOL/L (21-32); CHLORIDE 101 MMOL/L (98-107); CREATININE 0.5 MG/DL (0.55-1.30); PHOSPHORUS 2.6 MG/DL (2.5-4.9); POTASSIUM 4.1 MMOL/L (3.5-5.1); SODIUM 137 MMOL/L (136-145)
[2019-10-31] MEDS: Heparin 5000 units/ml inj SUBQ SCH ×2 (08:59→21:02)
[2019-10-31] MEDS ORDERED: Atropine Sulfate 0.4mg/ml inj IVP PRN (09:00)
[2019-10-31] MEDS ORDERED: fentaNYL 100 mcg/2 mL IV PRN (09:00)
[2019-10-31] MEDS ORDERED: Midazolam 2mg/2ml Inj IVP PRN (09:00)
[2019-10-31] MEDS ORDERED: DiphenhydrAMINE 50mg/ml Inj IVP PRN (09:00)
--- NOTE | 2019-10-31 09:01 | Anethesia Preoperative Eval ---
Anesthesia Pre-op PMH/ROS General Date of Evaluation: Oct 31, 2019 Time of Evaluation: 08:57 Anesthesiologist: rebecca ASA Score: ASA 4 Mallampati Score Class I : Soft palate, uvula, fauces, pillars visible Class II: Soft palate, uvula, fauces visible Class III: Soft palate, base of uvula visible Class IV: Only hard plate visible Mallampati Classification: Class II Surgeon: esmer Diagnosis: severe protein/calorie malnutrition Surgical Procedure: peg Anesthesia History: none Social History: smoking - nonsmoker Family History: no anesthesia problems Allergies: Coded Allergies: ALENDRONATE SODIUM (Verified Allergy, Unknown, 10/27/19) SIMVASTATIN (Verified Allergy, Unknown, 10/27/19) Medications: see eMAR Patient NPO?: Yes Past Medical History Cardiovascular: Reports: HTN, other - hyperlipidemia Pulmonary: Reports: asthma Gastrointestinal/Genitourinary: Reports: GERD, other - severe malnutrition, uti Neurologic/Psychiatric: Reports: dementia, other - ftt, toxic encephalopathy Endocrine: Reports: DM HEENT: Reports: glaucoma Musculoskeletal/Integumentary: Reports: other - chronic back pain Anesthesia Pre-op Phys. Exam Physician Exam Last Vital Signs Date Time Temp Pulse Resp B/P (MAP) Pulse Ox O2 Delivery O2 Flow Rate FiO2 10/31/19 08:00 97.3 95 18 114/58 (76) 94 10/30/19 20:16 Room Air Constitutional: NAD Neurologic: CN 2-12 intact Cardiovascular: RRR Respiratory: CTA Gastrointestinal: S/NT/ND Airway Exam Mallampati Score: Class II MO: limited Neck: flexible TMD: 2fb ROM: limited Teeth: missing Anesthesia Pre-op A/P Labs Chemistry Test 10/30/19 11:30 10/30/19 16:34 10/30/19 20:35 10/31/19 05:36 POC Whole Blood Glucose 310 MG/DL (74-106) H 239 MG/DL (74-106) H 260 MG/DL (74-106) H 181 MG/DL (74-106) H Test 10/31/19 07:45 Sodium Level 137 MMOL/L (136-145) Potassium Level 4.1 MMOL/L (3.5-5.1) Chloride Level 101 MMOL/L (98-107) Carbon Dioxide Level 30 MMOL/L (21-32) Anion Gap 6 mmol/L (5-15) Blood Urea Nitrogen 9 mg/dL (7-18) Creatinine 0.5 MG/DL (0.55-1.30) L Estimat Glomerular Filtration Rate > 60 mL/min (>60) Glucose Level 234 MG/DL (74-106) H Calcium Level 10.5 MG/DL (8.5-10.1) H Phosphorus Level 2.6 MG/DL (2.5-4.9) Magnesium Level 1.8 MG/DL (1.8-2.4) Risk Assessment & Plan Assessment: asa4 Plan: mac Pre-Antibiotics Drug: Marla Lino MD Oct 31, 2019 09:01
[2019-10-31] MEDS: traMADol 50mg tab ORAL PRN (10:18)
[2019-10-31] MEDS ORDERED: Lidocaine 1% MPF 10mg/ml 5ml ONE (10:30)
--- NOTE | 2019-10-31 10:34 | Neurology Progress Note ---
Interim History Interim History Interim History Ms. Alessandra Veliz is an 83-year-old, right-handed, lady, who does have a past history of diabetes mellitus and cognitive dysfunction. At her baseline she is able to communicate and do a little bit of walking. She lives in a half-way where she was noted to be increasingly weak, more confused and agitated, not her usual self. When she was first evaluated by me on 10/28/2019 it was felt that she had underlying cognitive dysfunction most probably related to a primary degenerative process with a superadded toxic encephalopathy related to her acute urinary tract infection. She continues to be confused, disoriented, and at times agitated. She is being fed through an NG tube and is in two-point soft restraints. Plans are to place a PEG today. She says she feels unwell. She is unable to explain why she feels that way. She is quite oblivious as to why she is here and cannot give me any further history. Review of Systems Neuro Review of Systems Unable to obtain. Objective Physical Exam Last Vital Signs Date Time Temp Pulse Resp B/P (MAP) Pulse Ox O2 Delivery O2 Flow Rate FiO2 10/31/19 09:00 Room Air 10/31/19 08:00 97.3 95 18 114/58 (76) 94 Laboratory Tests Test 10/30/19 11:30 10/30/19 16:34 10/30/19 20:35 10/31/19 05:36 POC Whole Blood Glucose 310 MG/DL (74-106) H 239 MG/DL (74-106) H 260 MG/DL (74-106) H 181 MG/DL (74-106) H Test 10/31/19 07:45 Sodium Level 137 MMOL/L (136-145) Potassium Level 4.1 MMOL/L (3.5-5.1) Chloride Level 101 MMOL/L (98-107) Carbon Dioxide Level 30 MMOL/L (21-32) Anion Gap 6 mmol/L (5-15) Blood Urea Nitrogen 9 mg/dL (7-18) Creatinine 0.5 MG/DL (0.55-1.30) L Estimat Glomerular Filtration Rate > 60 mL/min (>60) Glucose Level 234 MG/DL (74-106) H Calcium Level 10.5 MG/DL (8.5-10.1) H Phosphorus Level 2.6 MG/DL (2.5-4.9) Magnesium Level 1.8 MG/DL (1.8-2.4) Neurologic Exam Objective PHYSICAL EXAMINATION: GENERAL: She is a well developed, but lean lady lying in bed in no acute distress. HEAD: Normocephalic and atraumatic. NECK: No neck rigidity was observed. EENT: Benign. EXTREMITIES: Benign. NEUROLOGIC EXAMINATION: MENTAL STATUS EXAMINATION: She was awake but not completely alert. She was oriented to self only. She had no idea of where she was or the date was. She was unable to cooperate for further mental status testing. SPEECH: She had a mild dysarthria. LANGUAGE: Language was impossible to test because of inability to cooperate. CRANIAL NERVE EXAMINATION: II: She did blink to threat but was unable to cooperate for confrontation testing. III, IV, : External ocular movements were full and pupils 3 mm in diameter equal, round, regular and reactive to light. V: The facial sensations were normal, and the temporales, masseters and pterygoids functioned normally. VII: The facial expressions were normal and no facial asymmetry was seen. VIII: She was able to hear well bilaterally and had no nystagmus. IX: The palate moved symmetrically on phonation. X: There was no hoarseness of voice. XI: The sternocleidomastoids and trapezii functioned normally. XII: The tongue was in the midline without any fasciculations or atrophy. MOTOR SYSTEM: The tone was normal in all 4 extremities. Examination of muscle mass revealed generalized muscle wasting. In addition she also had mild bilateral ankle cord contractures. Examination of power could not be performed formally. She did move all 4 extremities and had fair hand stock blender bilaterally. SENSORY EXAMINATION: She responded appropriately to deep painful stimuli. She was unable to cooperate for other sensory modalities. COORDINATION: She did not cooperate for coordination testing. REFLEXES: 0 at the biceps, triceps, brachioradialis, knees and ankles. The plantar responses were flexor bilaterally. STANCE: Could not be tested. GAIT: Could not be tested. ABNORMAL MOVEMENTS: None Impression/Recommendations Diagnostic Impression DIAGNOSTIC IMPRESSION: 1. Ms. Alessandra Veliz is an 83-year-old, right-handed, lady, who does have a past history of diabetes mellitus and cognitive dysfunction. At her baseline she is able to communicate and do a little bit of walking. 2. She lives in a half-way where she was noted to be increasingly weak, more confused and agitated, not her usual self. 3. She continues to be confused, disoriented, and at times agitated. She is being fed through an NG tube and is in two-point soft restraints. Plans are to place a PEG today. She says she feels unwell. She is unable to explain why she feels that way. She is quite oblivious as to why she is here and cannot give me any further history. 4. On neurological examination, at this time, She is awake but not completely alert. She is oriented to self only. She has no idea of where she is or the date is. She is unable to cooperate for further mental status testing. She does not demonstrate any definite focal findings on her cranial nerve examination. She is generally weak but does not demonstrate any focal weakness. She does have bilateral ankle cord contractures. She responds appropriately to deep pain but is unable to cooperate for other sensory modalities. Her deep tendon reflexes are globally absent but her plantar responses are flexor. She is unable to cooperate for coordination, stance, and gait testing. 5. Laboratory data obtained on my initial evaluation revealed a WBC count elevated at 16,000, a low hemoglobin at 11.7, elevated glucose at 198, elevated hemoglobin A1c at 6.6%, normal TSH at 2.929. The urinalysis reveals 3+ leukocyte esterase, 5-10 RBCs and too numerous to count WBCs per high-power field. 6. Further laboratory tests have revealed a normal vitamin B-12 level, low folate, and an elevated ESR. 7. The EEG performed on 10/28/2019 revealed findings compatible with a mild to moderate toxic metabolic encephalopathy and in addition a left mid temporal epileptogenic focus with infrequent interictal discharges. 8. The CT scan of the brain without contrast performed on 10/29/2019 revealed atrophy and some deep white matter changes but no acute pathology. 9. The patient's history, neurological examination, and laboratory data, are most consistent with underlying cognitive dysfunction most probably related to a primary degenerative process with a superadded toxic encephalopathy related to her acute urinary tract infection. 10. Her encephalopathy is stable today. Recommendations RECOMMENDATIONS: 1. Continue present management. 2. Folic acid 1 mg daily for folic acid deficiency. 3. Continue antibiotic treatment and fluid and electrolyte correction. 4. Observe closely. Isak Go M.D., M.S.P.H. Neurologist & Clinical Neurophysiologist Isak Go MD Oct 31, 2019 10:34
--- NOTE | 2019-10-31 10:38 | General Progress Note ---
Assessment/Plan Assessment/Plan: Assessment - OBS - anorexia - malnutrition - macrocytic anemia with normal B12 Recommendations - continue NGT feeds - elevate HOB - PEG today at 11 am Subjective Allergies: Coded Allergies: ALENDRONATE SODIUM (Verified Allergy, Unknown, 10/27/19) SIMVASTATIN (Verified Allergy, Unknown, 10/27/19) Subjective Above noted NPO for EGD/PEG agitated labs noted Objective Last 24 Hour Vital Signs Date Time Temp Pulse Resp B/P (MAP) Pulse Ox O2 Delivery O2 Flow Rate FiO2 10/31/19 09:00 Room Air 10/31/19 08:00 97.3 95 18 114/58 (76) 94 10/31/19 04:00 97.6 95 22 118/67 (84) 94 10/31/19 00:09 97.8 92 22 115/65 (82) 94 10/30/19 20:16 Room Air 10/30/19 20:00 98.2 102 22 104/54 (71) 94 10/30/19 16:00 98.2 105 20 137/64 (88) 97 10/30/19 12:00 99.9 96 21 113/59 (77) 95 Intake and Output 10/30/19 10/31/19 19:00 07:00 Intake Total 890.0 ml 350.0 ml Output Total 300 ml 400 ml Balance 590.0 ml -50.0 ml Free Water 180 ml 60 ml IV Total 110.0 ml 110.0 ml Tube Feeding 600 ml 180 ml Output Urine Total 300 ml 400 ml Laboratory Tests 10/30/19 11:30: POC Whole Blood Glucose 310H 10/30/19 16:34: POC Whole Blood Glucose 239H 10/30/19 20:35: POC Whole Blood Glucose 260H 10/31/19 05:36: POC Whole Blood Glucose 181H 10/31/19 07:45: Sodium Level 137, Potassium Level 4.1, Chloride Level 101, Carbon Dioxide Level 30, Anion Gap 6, Blood Urea Nitrogen 9, Creatinine 0.5L, Estimat Glomerular Filtration Rate > 60, Glucose Level 234H, Calcium Level 10.5H, Phosphorus Level 2.6, Magnesium Level 1.8 Height (Feet): 5 Height (Inches): 2.00 Weight (Pounds): 116 Objective Elderly WW agitated NCAT supple CTA RRR abd soft ND NT no edema Ariadna Hamilton MD Oct 31, 2019 10:38
--- NOTE | 2019-10-31 10:39 | Pre-Procedure Note/Attestation ---
Pre-Procedure Note/Attestation Complete Prior to Procedure Planned Procedure: not applicable Procedure Narrative: EGD PEG Indications for Procedure Pre-Operative Diagnosis: anorexia, malnutrition Attestation I attest that I discussed the nature of the procedure; its benefits; risks and complications; and alternatives (and the risks and benefits of such alternatives ), prior to the procedure, with the patient (or the patient's legal territory service representative). I attest that, if there was a reasonable possibility of needing a blood transfusion, the patient (or the patient's legal territory service representative) was given the [facility] standardized written summary, pursuant to the Naldo Maria G Blood Safety Act ([place] Health and Safety Code # 1645, as amended). I attest that I re-evaluated the patient just prior to the surgery and that there has been no change in the patient's H&P, except as documented below: Ariadna Hamilton MD Oct 31, 2019 10:39
[2019-10-31] MEDS ORDERED: NS 500ML IVPB ONE (10:51)
--- NOTE | 2019-10-31 10:54 | NUR ---
NURSE NOTES: Patient transferred to GI lab for anticipated procedure. Vital signs stable prior to transfer, PIV patent on right hand.
--- NOTE | 2019-10-31 11:23 | Endoscopy Procedure Note ---
Endoscopy Procedure Note General Indication for Procedure: anemia, dysphagia Procedures Performed: EGD, PEG Operative Findings/Diagnosis: PEG placed Specimen: none Pt Tolerated Procedure Well: Yes Estimated Blood Loss: none Anesthesia Anesthesiologist: Fitz Santiago Anesthesia: MAC Medications Medication Given: see anesthesia record Inserted Devices Implant(s) used?: No GI Core Measures 50 yrs or older w/o bx or poly: Not Applicable 10yrs. F/U recommended: Not Applicable If not recommended, why?: Ariadna Hamilton MD Oct 31, 2019 11:23
--- NOTE | 2019-10-31 11:24 | Brief Operative Note ---
Immediate Post Operative Note Operative Note Chief Complaint: dysphagia Pre-op Diagnosis: anorexia, malnutrition Procedure: EGD PEG Post-op Diagnosis: s/p PEG Surgeon: Alfonso Anesthesiologist: See report Anesthesia: MAC, moderate sedation Specimen: none Complications: none Condition: stable Fluids: per anesthesia Estimated Blood Loss: none Drains: none Implant(s) used?: No Ariadna Hamilton MD Oct 31, 2019 11:24
--- NOTE | 2019-10-31 12:00 | Immediate Post-Op Evaluation ---
Immediate Post-Op Evalulation Immediate Post-Op Evalulation Procedure: egd/peg Date of Evaluation: Oct 31, 2019 Time of Evaluation: 11:35 IV Fluids: 150ml 0.9ns Blood Products: none Estimated Blood Loss: negligible Blood Pressure Systolic: 143 Blood Pressure Diastolic: 74 Pulse Rate: 87 Respiratory Rate: 18 O2 Sat by Pulse Oximetry: 100 Temperature (Fahrenheit): 97.5 Pain Score (1-10): 0 Nausea: No Vomiting: No Complications none Patient Status: awake, reacts, patent Hydration Status: adequate Drug: Marla Lino MD Oct 31, 2019 12:00
--- NOTE | 2019-10-31 12:01 | 48 Hour Post Anesthesia Eval ---
Post Anesthesia Evaluation Procedure: egd/peg Date of Evaluation: Oct 31, 2019 Time of Evaluation: 11:37 Blood Pressure Systolic: 144 0: 77 Pulse Rate: 90 Respiratory Rate: 18 Temperature (Fahrenheit): 97.5 O2 Sat by Pulse Oximetry: 100 Airway: patent Nausea: No Vomiting: No Pain Intensity: 0 Hydration Status: adequate Cardiopulmonary Status: stable Mental Status/LOC: patient returned to baseline Post-Anesthesia Complications: none Marla Mao MD Oct 31, 2019 12:01
--- NOTE | 2019-10-31 12:02 | NUR ---
NURSE NOTES: Patient returned from GI lab in stable condition. Abdominal binder on. Nurse reports pt tolerated procedure well. Fr 16 Gtube inserted. PIV intact.
[2019-10-31] MEDS: D5 1/2NS 1,000 ML IV SCH (12:15)
--- NOTE | 2019-10-31 12:48 | Infectious Diseases Prog Note ---
Assessment/Plan Assessment/Plan IMPRESSION: Sepsis resolving E coli urinary tract infection. Deep tissue injury in sacral buttock area. Diabetes mellitus type 2, Dementia, osteoporosis, Toxic encephalopathy Dysphagia s/p PEG placement RECOMMENDATION: Continue with Zosyn. Negative COVID19 test Subjective ROS Limited/Unobtainable: Yes Gastrointestinal/Abdominal: Reports: other - had GT placement today Neurologic: Reports: confusion, other - on restraint Allergies: Coded Allergies: ALENDRONATE SODIUM (Verified Allergy, Unknown, 10/27/19) SIMVASTATIN (Verified Allergy, Unknown, 10/27/19) Objective Last 24 Hour Vital Signs Date Time Temp Pulse Resp B/P (MAP) Pulse Ox O2 Delivery O2 Flow Rate FiO2 10/31/19 12:01 90 18 100 10/31/19 12:00 97.9 99 18 128/61 (83) 95 10/31/19 12:00 87 18 100 10/31/19 11:55 98.0 10/31/19 11:41 98.0 90 22 144/77 96 Room Air 10/31/19 11:35 92 20 148/74 96 Room Air 10/31/19 11:30 90 21 152/76 97 Room Air 10/31/19 11:23 97.5 87 18 143/74 100 Nasal Cannula 3 10/31/19 09:00 Room Air 10/31/19 08:00 97.3 95 18 114/58 (76) 94 10/31/19 04:00 97.6 95 22 118/67 (84) 94 10/31/19 00:09 97.8 92 22 115/65 (82) 94 10/30/19 20:16 Room Air 10/30/19 20:00 98.2 102 22 104/54 (71) 94 10/30/19 16:00 98.2 105 20 137/64 (88) 97 Height (Feet): 5 Height (Inches): 2.00 Weight (Pounds): 116 General Appearance: no acute distress HEENT: mucous membranes moist Respiratory/Chest: lungs clear Cardiovascular: normal rate Abdomen: soft, non tender, other - GT in place Extremities: no edema Neurologic/Psychiatric: disoriented Microbiology Date/Time Source Procedure Growth Status 10/31/19 07:23 Nasopharynx SARS-CoV-2 RdRp Gene Assay - Final Complete Laboratory Tests Test 10/30/19 16:34 10/30/19 20:35 7/6/20 05:36 10/31/19 07:45 POC Whole Blood Glucose 239 MG/DL (74-106) H 260 MG/DL (74-106) H 181 MG/DL (74-106) H Sodium Level 137 MMOL/L (136-145) Potassium Level 4.1 MMOL/L (3.5-5.1) Chloride Level 101 MMOL/L (98-107) Carbon Dioxide Level 30 MMOL/L (21-32) Anion Gap 6 mmol/L (5-15) Blood Urea Nitrogen 9 mg/dL (7-18) Creatinine 0.5 MG/DL (0.55-1.30) L Estimat Glomerular Filtration Rate > 60 mL/min (>60) Glucose Level 234 MG/DL (74-106) H Calcium Level 10.5 MG/DL (8.5-10.1) H Phosphorus Level 2.6 MG/DL (2.5-4.9) Magnesium Level 1.8 MG/DL (1.8-2.4) Current Medications Medications (Trade) Dose Ordered Sig/Zeferino Route PRN Reason Start Time Stop Time Status Last Admin Dose Admin Acetaminophen (Tylenol) 650 mg Q4H PRN ORAL Mild Pain (Pain Scale 1-3) 10/27/19 17:00 11/26/19 16:59 10/29/19 09:54 Dextrose (Dextrose 50%) 25 ml Q30M PRN IV Hypoglycemia 10/27/19 17:00 01/25/20 16:59 Dextrose (Dextrose 50%) 50 ml Q30M PRN IV Hypoglycemia 10/27/19 17:00 01/25/20 16:59 Dextrose/Sodium Chloride 1,000 ml @ 75 mls/hr [id number] IV 10/31/19 11:30 11/30/19 11:29 10/31/19 12:15 Folic Acid (Folate) 1 mg DAILY ORAL 10/30/19 13:30 11/29/19 13:29 10/30/19 13:30 Heparin Sodium (Porcine) (Heparin 5000 units/ml) 5,000 units EVERY 12 HOURS SUBQ 10/27/19 17:00 12/11/19 16:59 10/30/19 09:14 Insulin Aspart (NovoLOG) BEFORE MEALS AND HS SUBQ 10/27/19 21:00 01/25/20 20:59 10/31/19 12:20 Olanzapine (ZyPREXA) 2.5 mg Q6H PRN ORAL agitation 10/28/19 15:00 12/12/19 14:59 10/29/19 09:53 Piperacillin Sod/ Tazobactam Sod 3.375 gm/Sodium Chloride 110 ml @ 27.5 mls/hr EVERY 8 HOURS IVPB 10/27/19 18:00 11/01/19 17:59 10/31/19 05:41 Sitagliptin Phosphate (Januvia) 50 mg ACBREAKFAST ORAL 11/01/19 06:30 11/30/19 06:29 Tramadol HCl (Ultram) 50 mg Q8H PRN ORAL Moderate Pain (Pain Scale 4-6) 10/28/19 11:15 11/04/19 11:14 10/31/19 10:18 Felix Pham MD Oct 31, 2019 12:48
--- NOTE | 2019-10-31 13:30 | Operative Note - Dictated ---
DATE OF OPERATION: 10/31/2019 GASTROENTEROLOGY PROCEDURE REPORT PROCEDURE: Upper gastrointestinal endoscopy with gastrostomy tube placement. SURGEON: Ariadna Hamilton MD. ANESTHESIA: Dr. Mendez. PRE-ENDOSCOPIC DIAGNOSIS: Anorexia and malnutrition. POST-ENDOSCOPIC DIAGNOSIS: Status post gastrostomy tube placement. DESCRIPTION OF PROCEDURE: The procedure, its risks, indications, alternatives, and possible complications were explained to the patient's decision maker and informed consent was obtained. The patient was then sedated in the supine position and a diagnostic upper endoscope was introduced through the oropharynx and advanced to the duodenum without difficulty. The endoscope was then gradually withdrawn and mucosa examined carefully. Examination of the upper gastrointestinal mucosa revealed no significant abnormalities. The location for placement of the gastrostomy tube was identified by palpation and transillumination techniques. The outside skin was sterilely prepared, anesthetized, incised, and the trocar needle was used to place the gastrostomy tube using standard pull technique. Position was verified endoscopically. The endoscope was removed. The patient was sent to Recovery in good condition. COMPLICATIONS: None. RECOMMENDATIONS: 1. Observe overnight. 2. Begin tube feedings tomorrow. 3. Gastrostomy tube care per nursing. Ariadna Hamilton M.D. DR: BENJI JOB#: [id number] CC:
--- NOTE | 2019-10-31 13:41 | General Progress Note ---
Assessment/Plan Problem List: (1) UTI (urinary tract infection) ICD Codes: N39.0 - Urinary tract infection, site not specified SNOMED: 46253614 Qualifiers: Qualified Codes: N39.0 - Urinary tract infection, site not specified (2) Severe protein-calorie malnutrition ICD Codes: E43 - Unspecified severe protein-calorie malnutrition SNOMED: 319644394, 518290703, 434193413 (3) Failure to thrive SNOMED: 72783214 Qualifiers: Qualified Codes: R62.7 - Adult failure to thrive (4) Toxic metabolic encephalopathy ICD Codes: G92 - Toxic encephalopathy SNOMED: 703570147 (5) Diabetes mellitus ICD Codes: E11.9 - Type 2 diabetes mellitus without complications SNOMED: 38337980 (6) Hypokalemia ICD Codes: E87.6 - Hypokalemia SNOMED: 92391419 Assessment/Plan: TF per GI follow labs SSI Discussed with BETTY taylor Subjective Allergies: Coded Allergies: ALENDRONATE SODIUM (Verified Allergy, Unknown, 10/27/19) SIMVASTATIN (Verified Allergy, Unknown, 10/27/19) Subjective Got GT Objective Last 24 Hour Vital Signs Date Time Temp Pulse Resp B/P (MAP) Pulse Ox O2 Delivery O2 Flow Rate FiO2 10/31/19 12:01 90 18 100 10/31/19 12:00 97.9 99 18 128/61 (83) 95 10/31/19 12:00 87 18 100 10/31/19 11:55 98.0 10/31/19 11:41 98.0 90 22 144/77 96 Room Air 10/31/19 11:35 92 20 148/74 96 Room Air 10/31/19 11:30 90 21 152/76 97 Room Air 10/31/19 11:23 97.5 87 18 143/74 100 Nasal Cannula 3 10/31/19 09:00 Room Air 10/31/19 08:00 97.3 95 18 114/58 (76) 94 10/31/19 04:00 97.6 95 22 118/67 (84) 94 10/31/19 00:09 97.8 92 22 115/65 (82) 94 10/30/19 20:16 Room Air 10/30/19 20:00 98.2 102 22 104/54 (71) 94 7/5/20 16:00 98.2 105 20 137/64 (88) 97 Intake and Output 10/30/19 10/31/19 19:00 07:00 Intake Total 890.0 ml 350.0 ml Output Total 300 ml 400 ml Balance 590.0 ml -50.0 ml Free Water 180 ml 60 ml IV Total 110.0 ml 110.0 ml Tube Feeding 600 ml 180 ml Output Urine Total 300 ml 400 ml Laboratory Tests 10/30/19 16:34: POC Whole Blood Glucose 239H 10/30/19 20:35: POC Whole Blood Glucose 260H 10/31/19 05:36: POC Whole Blood Glucose 181H 10/31/19 07:45: Sodium Level 137, Potassium Level 4.1, Chloride Level 101, Carbon Dioxide Level 30, Anion Gap 6, Blood Urea Nitrogen 9, Creatinine 0.5L, Estimat Glomerular Filtration Rate > 60, Glucose Level 234H, Calcium Level 10.5H, Phosphorus Level 2.6, Magnesium Level 1.8 Height (Feet): 5 Height (Inches): 2.00 Weight (Pounds): 116 Migel Pham MD Oct 31, 2019 13:41
--- NOTE | 2019-10-31 13:49 | NUR ---
CASE MANAGEMENT:REVIEW SI;SEPSIS. E COLI UTI. MALNUTRITION. ENCEPHALOPATHY. 98.0 92 22 152/76 96% ON RA BG 234 CA 10.5 IS;JANUVIA IVF D5W @ 75 ML/HR ZOSYN IV HEPARIN SUBQ PEG PLACEMENT TODAY MED SURG STATUS DCP;PATIENT IS FROM [facility]
--- NOTE | 2019-10-31 14:11 | Consultation ---
History of Present Illness General Date patient seen: Oct 31, 2019 Chief Complaint: Generalized Weakness Present Illness HPI This is an 83-year-old female multiple medical comorbidities who is a retirement resident that presented to [facility] for evaluation of generalized weakness abnormal labs and identified to have malnutrition and decubitus skin ulcers. Surgery called to evaluate and assist with care. Patient seen, patient evaluated, chart reviewed. Patient unable participate exam at this time. Recent colonoscopy noted. Labs reviewed imaging reviewed head CT noted Allergies: Coded Allergies: ALENDRONATE SODIUM (Verified Allergy, Unknown, 10/27/19) SIMVASTATIN (Verified Allergy, Unknown, 10/27/19) Medication History Scheduled Acetaminophen* (Tylenol Extra Strength*), 1,000 MG ORAL Q6H, (Reported) Ascorbic Acid* (Ascorbic Acid*), 500 MG ORAL TWICE A DAY, (Reported) Aspirin* (Aspir 81*), 81 MG ORAL DAILY, (Reported) Atorvastatin Calcium* (Atorvastatin Calcium*), 40 MG ORAL BEDTIME, (Reported) Insulin Regular, Human* (Novolin R*), 0 SUBQ .SLIDING SCALE, (Reported) Latanoprost* (Xalatan*), 1 DROP BOTH EYES BEDTIME, (Reported) Mirtazapine* (Remeron*), 30 MG ORAL BEDTIME, (Reported) Pantoprazole* (Protonix*), 40 MG ORAL DAILY, (Reported) Zinc Sulfate (Zinc Sulfate*), 220 MG ORAL DAILY, (Reported) Scheduled PRN Hydrocodone Bit/Acetaminophen 10-325* ([place] 10-325*), 1 TAB ORAL Q4H PRN for For Pain, (Reported) Hydrocodone Bit/Acetaminophen 5-325* ([place] 5-325 Tablet*), 1 TAB ORAL Q4H PRN for For Pain, (Reported) Melatonin (Melatonin), 3 MG PO BEDTIME PRN for Insomnia, (Reported) Miscellaneous Medications Dorzolamide HCl/Pf (Dorzolamide 2% Eye Drop), 10 ML OP, (Reported) Discontinued Medications Acetaminophen* (Acetaminophen 325MG Tablet*), 650 MG ORAL Q4H PRN for Pain Scale (3-5), (Reported) Discontinued Reason: Pt stopped taking med Ascorbic Acid* (Vitamin C*), 500 MG ORAL TWICE A DAY, (Reported) Discontinued Reason: MD discontinued med Aspirin* (Aspir 81*), 81 MG ORAL DAILY, (Reported) Discontinued Reason: MD discontinued med Atorvastatin Calcium* (Atorvastatin Calcium*), 40 MG ORAL BEDTIME, (Reported) Discontinued Reason: Pt stopped taking med Atorvastatin Calcium* (Atorvastatin Calcium*), 40 MG ORAL DAILY, (Reported) Discontinued Reason: MD discontinued med Calcium Carbonate/Vitamin D3 (Calcium + Vitamin D Tablet), 1 EACH PO DAILY, ( Reported) Discontinued Reason: MD discontinued med Insulin Regular, Human* (Novolin R*), 4 SUBQ THREE TIMES A DAY, (Reported) Discontinued Reason: MD discontinued med Pantoprazole* (Pantoprazole*), 40 MG ORAL DAILY, (Reported) Discontinued Reason: MD discontinued med Tramadol Hcl* (Ultram*), 50 MG ORAL Q6H PRN for For Pain, (Reported) Discontinued Reason: Pt stopped taking med Zinc Sulfate (Zinc Sulfate*), 220 MG ORAL DAILY, (Reported) Discontinued Reason: MD discontinued med Patient History Limited by: medical condition History Provided By: Medical Record, PMD Healthcare decision maker Resuscitation status Advanced Directive on File Past Medical/Surgical History Past Medical/Surgical History: (1) Behavioral change (2) Failure to thrive (3) Episode of generalized weakness (4) UTI (urinary tract infection) (5) Severe protein-calorie malnutrition (6) Diabetes mellitus (7) Toxic metabolic encephalopathy (8) Hypokalemia Review of Systems All Other Systems: negative except mentioned in HPI ROS Narrative Unable obtain given patient's medical condition Physical Exam General Appearance: no apparent distress Lines, tubes and drains: peripheral HEENT: mucous membranes moist, PERRL Neck: normal alignment, supple Respiratory/Chest: lungs clear, normal breath sounds, no respiratory distress, no accessory muscle use Abdomen: soft, no organomegaly, no mass, feeding tube, other Extremities: normal inspection, no calf tenderness Skin Exam: warm/dry Neurologic: alert Last 24 Hour Vital Signs Date Time Temp Pulse Resp B/P (MAP) Pulse Ox O2 Delivery O2 Flow Rate FiO2 10/31/19 12:01 90 18 100 10/31/19 12:00 97.9 99 18 128/61 (83) 95 10/31/19 12:00 87 18 100 10/31/19 11:55 98.0 10/31/19 11:41 98.0 90 22 144/77 96 Room Air 10/31/19 11:35 92 20 148/74 96 Room Air 10/31/19 11:30 90 21 152/76 97 Room Air 10/31/19 11:23 97.5 87 18 143/74 100 Nasal Cannula 3 10/31/19 09:00 Room Air 10/31/19 08:00 97.3 95 18 114/58 (76) 94 10/31/19 04:00 97.6 95 22 118/67 (84) 94 10/31/19 00:09 97.8 92 22 115/65 (82) 94 10/30/19 20:16 Room Air 10/30/19 20:00 98.2 102 22 104/54 (71) 94 10/30/19 16:00 98.2 105 20 137/64 (88) 97 Intake and Output 10/30/19 10/31/19 19:00 07:00 Intake Total 890.0 ml 350.0 ml Output Total 300 ml 400 ml Balance 590.0 ml -50.0 ml Free Water 180 ml 60 ml IV Total 110.0 ml 110.0 ml Tube Feeding 600 ml 180 ml Output Urine Total 300 ml 400 ml Laboratory Tests Test 10/30/19 16:34 10/30/19 20:35 10/31/19 05:36 10/31/19 07:45 POC Whole Blood Glucose 239 MG/DL (74-106) H 260 MG/DL (74-106) H 181 MG/DL (74-106) H Sodium Level 137 MMOL/L (136-145) Potassium Level 4.1 MMOL/L (3.5-5.1) Chloride Level 101 MMOL/L (98-107) Carbon Dioxide Level 30 MMOL/L (21-32) Anion Gap 6 mmol/L (5-15) Blood Urea Nitrogen 9 mg/dL (7-18) Creatinine 0.5 MG/DL (0.55-1.30) L Estimat Glomerular Filtration Rate > 60 mL/min (>60) Glucose Level 234 MG/DL (74-106) H Calcium Level 10.5 MG/DL (8.5-10.1) H Phosphorus Level 2.6 MG/DL (2.5-4.9) Magnesium Level 1.8 MG/DL (1.8-2.4) Microbiology Date/Time Source Procedure Growth Status 10/31/19 07:23 Nasopharynx SARS-CoV-2 RdRp Gene Assay - Final Complete Height (Feet): 5 Height (Inches): 2.00 Weight (Pounds): 116 Medications Current Medications Medications (Trade) Dose Ordered Sig/Zeferino Route PRN Reason Start Time Stop Time Status Last Admin Dose Admin Acetaminophen (Tylenol) 650 mg Q4H PRN ORAL Mild Pain (Pain Scale 1-3) 10/27/19 17:00 11/26/19 16:59 10/29/19 09:54 Dextrose (Dextrose 50%) 25 ml Q30M PRN IV Hypoglycemia 10/27/19 17:00 01/25/20 16:59 Dextrose (Dextrose 50%) 50 ml Q30M PRN IV Hypoglycemia 10/27/19 17:00 01/25/20 16:59 Dextrose/Sodium Chloride 1,000 ml @ 75 mls/hr [id number] IV 10/31/19 11:30 11/30/19 11:29 10/31/19 12:15 Folic Acid (Folate) 1 mg DAILY ORAL 10/30/19 13:30 11/29/19 13:29 10/30/19 13:30 Heparin Sodium (Porcine) (Heparin 5000 units/ml) 5,000 units EVERY 12 HOURS SUBQ 10/27/19 17:00 12/11/19 16:59 10/30/19 09:14 Insulin Aspart (NovoLOG) BEFORE MEALS AND HS SUBQ 10/27/19 21:00 01/25/20 20:59 10/31/19 12:20 Olanzapine (ZyPREXA) 2.5 mg Q6H PRN ORAL agitation 10/28/19 15:00 12/12/19 14:59 10/29/19 09:53 Piperacillin Sod/ Tazobactam Sod 3.375 gm/Sodium Chloride 110 ml @ 27.5 mls/hr EVERY 8 HOURS IVPB 10/27/19 18:00 11/01/19 17:59 10/31/19 05:41 Sitagliptin Phosphate (Januvia) 50 mg ACBREAKFAST ORAL 11/01/19 06:30 11/30/19 06:29 Tramadol HCl (Ultram) 50 mg Q8H PRN ORAL Moderate Pain (Pain Scale 4-6) 10/28/19 11:15 11/04/19 11:14 10/31/19 10:18 Assessment/Plan Problem List: (1) Decubitus skin ulcer Assessment & Plan: Patient presented on admission with large identifiable sacral decubitus ulcer. Pt presented on admission with partially opened DTPI Sacrum, R and L buttocks(L) 14cm x (W)12.6cm. Base of wound is maroon with scattered purple areas within base of wound. At L Buttocks Wound with 100% slough noted (L)2.2cm x (W) 1.5cm.Non-Blanching erythema with shearing noted to R and L Gluteus. Incontinence associated dermatitis noted to perineum and medial aspects of both upper thighs. Skin is erythematous with scattered satellite lesions and denudement. Non-Blanching erythema without induration /fluctuance R and L Hallux. Non-Blanching erythema without fluctuance/induration Lateral R Malleolus(L) 1.5cm x (W)1cm. Non-Blanching erythema medial R heel. Base of wound is fluctuant with delineated margins(L)5.5cm x (W)5cm. L Heel is boggy with non-blanching erythema. Tx.Plan: Cleanse wound L Buttocks with Saline. Apply Therahoney. Apply Moisture Barrier Paste to surrounding DTPI. Cover with Optifoam drsg. Change every 3 days and prn. Apply Triad Paste to Perineum and medial aspects of both thighs with each Incontinence care. Apply Cavilon Skin Barrier to both heels. Cover with Optifoam drsgs. Change every 7 days and prn. Apply Cavilon Skin Barrier to R and L Hallux and Malleoli. Cover each Site with Optifoam drsgs. Change every 7 days and prn. Reposition at least every 2hours or as tolerated. Off-load heels with Pillows. APM/DANII Mattress overlay. We will follow with recommendations thank you ICD Codes: L89.90 - Pressure ulcer of unspecified site, unspecified stage SNOMED: 129269221 (2) Failure to thrive SNOMED: 09256470 Qualifiers: Qualified Codes: R62.7 - Adult failure to thrive (3) Episode of generalized weakness ICD Codes: R53.1 - Weakness SNOMED: 00184815 (4) UTI (urinary tract infection) ICD Codes: N39.0 - Urinary tract infection, site not specified SNOMED: 40103189 Qualifiers: Qualified Codes: N39.0 - Urinary tract infection, site not specified (5) Severe protein-calorie malnutrition Assessment & Plan: DAILY ESTIMATED NEEDS: Needs based on DM, 50.3kg 25-35 kcals/kg 4015-9688 total kcals 1.25-1.5 g protein/kg 63-75 g total protein 25-30 mL/kg 0516-9567 total fluid mLs NUTRITION DIAGNOSIS: Swallowing difficulty r/t FTT and poor po intake as evidenced by pt adm from SNF w/ poor intake, now on NGT feeds. CURRENT TF: Glucerna 1.2 @60 ENTERAL NUTRITION RECOMMENDATIONS: LOWER GLUCERNA 1.2 to goal of 55ml/hr x24 hrs to provide 1320ml, 1584 kcal, 79g pro, 1063ml free fluid - rec to lower current goal rate to 55ml/hr - Flush per MD/ HOB over 30 degrees ADDITIONAL RECOMMENDATIONS: 1) Maintain calibrated bed scale wts 2) F/up w/ WC eval 3) Rec OPTICAL MANUFACTURING TECHNICIAN eval for oral grat 4) F/up w/ H&P 5) Monitor BG, need for NISS or change of IVF from D5 to NS ICD Codes: E43 - Unspecified severe protein-calorie malnutrition SNOMED: 878834647, 669967661, 490305990 (6) Diabetes mellitus ICD Codes: E11.9 - Type 2 diabetes mellitus without complications SNOMED: 59626832 (7) Toxic metabolic encephalopathy ICD Codes: G92 - Toxic encephalopathy SNOMED: 400014800 (8) Hypokalemia ICD Codes: E87.6 - Hypokalemia SNOMED: 29954792 (9) Behavioral change ICD Codes: R46.89 - Other symptoms and signs involving appearance and behavior SNOMED: 985898304 Layo John Oct 31, 2019 14:11
--- NOTE | 2019-10-31 17:10 | NUR ---
NURSE NOTES:WOUND CARE NOTES:Pt presented on admission with partially opened DTPI Sacrum, R and L buttocks(L)14cm x (W)12.6cm. Base of wound is maroon with scattered purple areas within base of wound. At L Buttocks Wound with 100% slough noted (L)2.2cm x (W)1.5cm.Non-Blanching erythema with shearing noted to R and L Gluteus. Incontinence associated dermatitis noted to perineum and medial aspects of both upper thighs. Skin is erythematous with scattered satellite lesions and denudement. Non-Blanching erythema without induration /fluctuance R and L Hallux. Non-Blanching erythema without fluctuance/induration Lateral R Malleolus(L)1.5cm x (W)1cm. Non-Blanching erythema medial R heel. Base of wound is fluctuant with delineated margins(L)5.5cm x (W)5cm. L Heel is boggy with non-blanching erythema. Tx.Plan:Cleanse wound L Buttocks with Saline. Apply Therahoney. Apply Moisture Barrier Paste to surrounding DTPI. Cover with Optifoam drsg. Change every 3 days and prn. Apply Triad Paste to Perineum and medial aspects of both thighs with each Incontinence care. Apply Cavilon Skin Barrier to both heels. Cover with Optifoam drsgs. Change every 7 days and prn. Apply Cavilon Skin Barrier to R and L Hallux and Malleoli. Cover each Site with Optifoam drsgs. Change every 7 days and prn. Reposition at least every 2hours or as tolerated. Off-load heels with Pillows. APM/DANII Mattress overlay.
--- NOTE | 2019-10-31 19:35 | NUR ---
HAND-OFF: Report given to Caden HERNÁNDEZ. Endorsed that Gtube may be used for meds but no feeds as per Dr. Hamilton. PIV intact, plan of care endorsed.
--- NOTE | 2019-10-31 19:35 | NUR ---
NURSE NOTES: Report received from Skylar HERNÁNDEZ. Patient is awake and alert x 1. Patient is noted to be on room air, does not appear to be in respiratory distress at this time. Patient is noted to be in bilateral soft wrist restraints due to patient safety and pulling at medical lines. No edema noted, circulation noted, patient can move fingers. No restraint order renewal needed at this time. Patient is noted to have a negative covid 19 test as of today. Patient noted to have abdominal binder in place due to G tube placement today. Endorsed to Caden HERNÁNDEZ that g tube can be used to give medications, but feedings will resume tomorrow. Patient previously had Nasogastric tube. Bed is locked, alarmed, in lowest position. Will continue to follow plan of care. Addendum: 11/01/19 at 0728 by Caden Ortiz RN Endorsed that patient has edema in left hand from previously infiltrated IV.
--- NOTE | 2019-10-31 22:19 | Psych Consult Progress Note ---
Psychiatry Progress Note Psychiatry Progress Note Medications Current Medications Medications (Trade) Dose Ordered Sig/Zeferino Route PRN Reason Start Time Stop Time Status Last Admin Dose Admin Acetaminophen (Tylenol) 650 mg Q4H PRN ORAL Mild Pain (Pain Scale 1-3) 10/27/19 17:00 11/26/19 16:59 10/29/19 09:54 Dextrose (Dextrose 50%) 25 ml Q30M PRN IV Hypoglycemia 10/27/19 17:00 01/25/20 16:59 Dextrose (Dextrose 50%) 50 ml Q30M PRN IV Hypoglycemia 10/27/19 17:00 01/25/20 16:59 Dextrose/Sodium Chloride 1,000 ml @ 75 mls/hr [id number] IV 10/31/19 11:30 11/30/19 11:29 10/31/19 12:15 Folic Acid (Folate) 1 mg DAILY ORAL 10/30/19 13:30 11/29/19 13:29 10/30/19 13:30 Heparin Sodium (Porcine) (Heparin 5000 units/ml) 5,000 units EVERY 12 HOURS SUBQ 10/27/19 17:00 12/11/19 16:59 10/31/19 21:02 Insulin Aspart (NovoLOG) BEFORE MEALS AND HS SUBQ 10/27/19 21:00 01/25/20 20:59 10/31/19 17:00 Olanzapine (ZyPREXA) 2.5 mg Q6H PRN ORAL agitation 10/28/19 15:00 12/12/19 14:59 10/29/19 09:53 Piperacillin Sod/ Tazobactam Sod 3.375 gm/Sodium Chloride 110 ml @ 27.5 mls/hr EVERY 8 HOURS IVPB 10/27/19 18:00 11/05/19 17:59 10/31/19 21:01 Sitagliptin Phosphate (Januvia) 50 mg ACBREAKFAST ORAL 11/01/19 06:30 11/30/19 06:29 Tramadol HCl (Ultram) 50 mg Q8H PRN ORAL Moderate Pain (Pain Scale 4-6) 10/28/19 11:15 11/04/19 11:14 10/31/19 10:18 Allergies: Coded Allergies: ALENDRONATE SODIUM (Verified Allergy, Unknown, 10/27/19) SIMVASTATIN (Verified Allergy, Unknown, 10/27/19) Objective Data Height (Feet): 5 Height (Inches): 2.00 Weight (Pounds): 116 Assessment/Plan Status Narrative Mood is neutral. Affect is flat. Thought process, there is a paucity of thought content. Thought content, no suicidal or homicidal ideation. Cognition is impaired. Insight and judgment impaired. ASSESSMENT: [place] I Acute toxic encephalopathy/metabolic encephalopathy. Depressive disorder. [place] II Deferred. [place] III As above. [place] IV Low. [place] V 50. PLAN: 1. We will start patient on Zyprexa p.r.n. 2. Bilateral soft restraints as she pulled out her lines. 3. Discussed with Dr. Pham. Kar Nelson MD Oct 31, 2019 22:19
[2019-11-01] VITALS (7 sets, daily range): BP systolic 90–141; BP diastolic 55–73
[2019-11-01] MEDS: D5 1/2NS 1,000 ML IV SCH ×2 (00:10→14:10)
[2019-11-01] MEDS: traMADol 50mg tab ORAL PRN (05:02)
[2019-11-01] MEDS: sitaGLIPtin 25mg tab ORAL SCH (06:28)
[2019-11-01] MEDS: NovoLOG Insulin Flexpen SUBQ SCH ×4 (06:29→21:04)
[2019-11-01] MEDS: Piperacillin/Tazobactam 3.375 GM in NS 110 ML IVPB SCH ×3 (06:51→21:02)
--- NOTE | 2019-11-01 07:27 | NUR ---
HAND-OFF: Report given to Devin HERNÁNDEZ. Endorsed that patient is in bilateral soft wrist restraints. Endorsed to follow up with MD regarding tube feeding. Patient currently in stable condition.
--- NOTE | 2019-11-01 07:46 | NUR ---
NURSE NOTES: Received report. pt is in the bed asleep. respiration is even and unlabored. no acute distress noted. call light is within reach, will follow plan of care.
[2019-11-01] MEDS: Heparin 5000 units/ml inj SUBQ SCH ×2 (08:40→21:03)
--- NOTE | 2019-11-01 09:48 | NUR ---
RD ASSESSMENT & RECOMMENDATIONS SEE CARE ACTIVITY FOR COMPLETE ASSESSMENT DAILY ESTIMATED NEEDS: Needs based on DM, 50.3kg 25-35 kcals/kg 4228-6343 total kcals 1.25-1.5 g protein/kg 63-75 g total protein 25-30 mL/kg 2933-8097 total fluid mLs NUTRITION DIAGNOSIS: Swallowing difficulty r/t FTT and poor po intake as evidenced by pt adm from SNF w/ poor intake, now s/p GT placement. ENTERAL NUTRITION RECOMMENDATIONS: LOWER GLUCERNA 1.2 to goal of 55ml/hr x24 hrs to provide 1320ml, 1584 kcal, 79g pro, 1063ml free fluid - S/p PEG, start Glucerna 1.2 @low rate 15ml/hr for 6hrs - Advance as tolerated 10ml/hr q4-6 hrs to goal of 55ml/hr x24 hrs. - Flush per MD/ HOB over 30 degrees ADDITIONAL RECOMMENDATIONS: 1) Maintain calibrated bed scale wts 2) F/up w/ WC eval -> add PLACIDO BID via GT 3) Rec FINANCIAL SOLUTIONS ADVISOR eval for oral grat 4) F/up w/ H&P 5) Monitor BG, need for NISS or change of IVF from D5 to NS
--- NOTE | 2019-11-01 10:22 | Surgery Progress Note ---
Surgery Progress Note Subjective Additional Comments no acute events comfortable stable Objective Last 24 Hour Vital Signs Date Time Temp Pulse Resp B/P (MAP) Pulse Ox O2 Delivery O2 Flow Rate FiO2 11/01/19 08:00 97.7 91 20 125/71 (89) 95 11/01/19 06:11 Room Air 11/01/19 04:00 97.9 105 22 112/68 (83) 94 11/01/19 00:00 98.1 101 24 106/69 (81) 93 10/31/19 21:00 Room Air 10/31/19 20:00 97.9 99 22 113/63 (80) 93 10/31/19 16:00 97.3 95 18 130/77 (94) 92 10/31/19 12:01 90 18 100 10/31/19 12:00 97.9 99 18 128/61 (83) 95 10/31/19 12:00 87 18 100 10/31/19 11:55 98.0 10/31/19 11:41 98.0 90 22 144/77 96 Room Air 10/31/19 11:35 92 20 148/74 96 Room Air 10/31/19 11:30 90 21 152/76 97 Room Air 10/31/19 11:23 97.5 87 18 143/74 100 Nasal Cannula 3 I&O Intake and Output 10/31/19 11/01/19 19:00 07:00 Intake Total 725 ml 635.0 ml Output Total 400 ml 300 ml Balance 325 ml 335.0 ml IV Total 725 ml 635.0 ml Output Urine Total 400 ml 300 ml Estimated Blood Loss 0 ml # Bowel Movements 1 2 Dressing: other Wound: other Cardiovascular: RSR Respiratory: decreased breath sounds Abdomen: soft, non-tender, present bowel sounds Extremities: edema, no tenderness, no cyanosis Plan Problems: (1) Decubitus skin ulcer Assessment & Plan: Patient presented on admission with large identifiable sacral decubitus ulcer. Pt presented on admission with partially opened DTPI Sacrum, R and L buttocks(L) 14cm x (W)12.6cm. Base of wound is maroon with scattered purple areas within base of wound. At L Buttocks Wound with 100% slough noted (L)2.2cm x (W) 1.5cm.Non-Blanching erythema with shearing noted to R and L Gluteus. Incontinence associated dermatitis noted to perineum and medial aspects of both upper thighs. Skin is erythematous with scattered satellite lesions and denudement. Non-Blanching erythema without induration /fluctuance R and L Hallux. Non-Blanching erythema without fluctuance/induration Lateral R Malleolus(L) 1.5cm x (W)1cm. Non-Blanching erythema medial R heel. Base of wound is fluctuant with delineated margins(L)5.5cm x (W)5cm. L Heel is boggy with non-blanching erythema. Tx.Plan: Cleanse wound L Buttocks with Saline. Apply Therahoney. Apply Moisture Barrier Paste to surrounding DTPI. Cover with Optifoam drsg. Change every 3 days and prn. Apply Triad Paste to Perineum and medial aspects of both thighs with each Incontinence care. Apply Cavilon Skin Barrier to both heels. Cover with Optifoam drsgs. Change every 7 days and prn. Apply Cavilon Skin Barrier to R and L Hallux and Malleoli. Cover each Site with Optifoam drsgs. Change every 7 days and prn. Reposition at least every 2hours or as tolerated. Off-load heels with Pillows. APM/DANII Mattress overlay. We will follow with recommendations thank you (2) Failure to thrive (3) Episode of generalized weakness (4) UTI (urinary tract infection) (5) Severe protein-calorie malnutrition Assessment & Plan: DAILY ESTIMATED NEEDS: Needs based on DM, 50.3kg 25-35 kcals/kg 0604-5046 total kcals 1.25-1.5 g protein/kg 63-75 g total protein 25-30 mL/kg 8454-4320 total fluid mLs NUTRITION DIAGNOSIS: Swallowing difficulty r/t FTT and poor po intake as evidenced by pt adm from SNF w/ poor intake, now s/p GT placement. ENTERAL NUTRITION RECOMMENDATIONS: LOWER GLUCERNA 1.2 to goal of 55ml/hr x24 hrs to provide 1320ml, 1584 kcal, 79g pro, 1063ml free fluid - S/p PEG, start Glucerna 1.2 @low rate 15ml/hr for 6hrs - Advance as tolerated 10ml/hr q4-6 hrs to goal of 55ml/hr x24 hrs. 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
[2019-11-01] MEDS: OLANZapine 2.5mg tab ORAL PRN (11:46)
--- NOTE | 2019-11-01 14:06 | General Progress Note ---
Assessment/Plan Problem List: (1) UTI (urinary tract infection) ICD Codes: N39.0 - Urinary tract infection, site not specified SNOMED: 04019521 Qualifiers: Qualified Codes: N39.0 - Urinary tract infection, site not specified (2) Severe protein-calorie malnutrition ICD Codes: E43 - Unspecified severe protein-calorie malnutrition SNOMED: 017552270, 279770239, 893592055 (3) Failure to thrive SNOMED: 70735905 Qualifiers: Qualified Codes: R62.7 - Adult failure to thrive (4) Toxic metabolic encephalopathy ICD Codes: G92 - Toxic encephalopathy SNOMED: 159166107 (5) Diabetes mellitus ICD Codes: E11.9 - Type 2 diabetes mellitus without complications SNOMED: 28917543 (6) Hypokalemia ICD Codes: E87.6 - Hypokalemia SNOMED: 78947796 Assessment/Plan: TF per GI follow labs SSI Discussed with BETTY taylor Subjective Allergies: Coded Allergies: ALENDRONATE SODIUM (Verified Allergy, Unknown, 10/27/19) SIMVASTATIN (Verified Allergy, Unknown, 10/27/19) Subjective lethargic Objective Last 24 Hour Vital Signs Date Time Temp Pulse Resp B/P (MAP) Pulse Ox O2 Delivery O2 Flow Rate FiO2 11/01/19 12:00 97.9 104 20 117/73 (88) 94 11/01/19 08:00 97.7 91 20 125/71 (89) 95 11/01/19 06:11 Room Air 11/01/19 04:00 97.9 105 22 112/68 (83) 94 11/01/19 00:00 98.1 101 24 106/69 (81) 93 10/31/19 21:00 Room Air 10/31/19 20:00 97.9 99 22 113/63 (80) 93 10/31/19 16:00 97.3 95 18 130/77 (94) 92 Intake and Output 10/31/19 11/01/19 19:00 07:00 Intake Total 725 ml 635.0 ml Output Total 400 ml 300 ml Balance 325 ml 335.0 ml IV Total 725 ml 635.0 ml Output Urine Total 400 ml 300 ml Estimated Blood Loss 0 ml # Bowel Movements 1 2 Height (Feet): 5 Height (Inches): 2.00 Weight (Pounds): 116 Cardiovascular: normal rate Respiratory/Chest: lungs clear Edema: no edema noted Generalized Migel Pham MD Nov 01, 2019 14:06
--- NOTE | 2019-11-01 16:25 | Infectious Diseases Prog Note ---
Assessment/Plan Assessment/Plan IMPRESSION: Sepsis resolving E coli urinary tract infection. Deep tissue injury in sacral buttock area. Diabetes mellitus type 2, Dementia, osteoporosis, Toxic encephalopathy Dysphagia s/p PEG placement RECOMMENDATION: Continue with Zosyn. Negative COVID19 test Subjective ROS Limited/Unobtainable: Yes Allergies: Coded Allergies: ALENDRONATE SODIUM (Verified Allergy, Unknown, 10/27/19) SIMVASTATIN (Verified Allergy, Unknown, 10/27/19) Objective Last 24 Hour Vital Signs Date Time Temp Pulse Resp B/P (MAP) Pulse Ox O2 Delivery O2 Flow Rate FiO2 11/01/19 12:00 97.9 104 20 117/73 (88) 94 11/01/19 08:00 97.7 91 20 125/71 (89) 95 11/01/19 06:11 Room Air 11/01/19 04:00 97.9 105 22 112/68 (83) 94 11/01/19 00:00 98.1 101 24 106/69 (81) 93 10/31/19 21:00 Room Air 10/31/19 20:00 97.9 99 22 113/63 (80) 93 Height (Feet): 5 Height (Inches): 2.00 Weight (Pounds): 116 HEENT: mucous membranes moist Respiratory/Chest: lungs clear Cardiovascular: tachycardia Abdomen: soft, non tender, other - GT feeding Neurologic/Psychiatric: other - awake Microbiology Date/Time Source Procedure Growth Status 10/31/19 07:23 Nasopharynx SARS-CoV-2 RdRp Gene Assay - Final Complete Current Medications Medications (Trade) Dose Ordered Sig/Zeferino Route PRN Reason Start Time Stop Time Status Last Admin Dose Admin Acetaminophen (Tylenol) 650 mg Q4H PRN ORAL Mild Pain (Pain Scale 1-3) 10/27/19 17:00 11/26/19 16:59 11/01/19 11:47 Dextrose (Dextrose 50%) 25 ml Q30M PRN IV Hypoglycemia 10/27/19 17:00 01/25/20 16:59 Dextrose (Dextrose 50%) 50 ml Q30M PRN IV Hypoglycemia 10/27/19 17:00 01/25/20 16:59 Dextrose/Sodium Chloride 1,000 ml @ 75 mls/hr [id number] IV 10/31/19 11:30 11/30/19 11:29 11/01/19 00:10 Folic Acid (Folate) 1 mg DAILY ORAL 10/30/19 13:30 11/29/19 13:29 11/01/19 08:40 Heparin Sodium (Porcine) (Heparin 5000 units/ml) 5,000 units EVERY 12 HOURS SUBQ 10/27/19 17:00 12/11/19 16:59 11/01/19 08:40 Insulin Aspart (NovoLOG) BEFORE MEALS AND HS SUBQ 10/27/19 21:00 01/25/20 20:59 11/01/19 12:07 Olanzapine (ZyPREXA) 2.5 mg Q6H PRN ORAL agitation 10/28/19 15:00 12/12/19 14:59 11/01/19 11:46 Piperacillin Sod/ Tazobactam Sod 3.375 gm/Sodium Chloride 110 ml @ 27.5 mls/hr EVERY 8 HOURS IVPB 10/27/19 18:00 11/05/19 17:59 11/01/19 15:38 Sitagliptin Phosphate (Januvia) 50 mg ACBREAKFAST ORAL 11/01/19 06:30 11/30/19 06:29 11/01/19 06:28 Tramadol HCl (Ultram) 50 mg Q8H PRN ORAL Moderate Pain (Pain Scale 4-6) 10/28/19 11:15 11/04/19 11:14 11/01/19 05:02 Felix Pham MD Nov 01, 2019 16:25
--- NOTE | 2019-11-01 16:31 | Neurology Progress Note ---
Interim History Interim History Interim History Ms. Alessandra Veliz is an 83-year-old, right-handed, lady, who does have a past history of diabetes mellitus and cognitive dysfunction. At her baseline she is able to communicate and do a little bit of walking. She lives in a [facility] where she was noted to be increasingly weak, more confused and agitated, not her usual self. When she was first evaluated by me on 10/28/2019 it was felt that she had underlying cognitive dysfunction most probably related to a primary degenerative process with a superadded toxic encephalopathy related to her acute urinary tract infection. She continues to be confused, disoriented, and at times agitated. She did have a PEG placed yesterday and is being fed through it. She says she feels unwell. She is unable to explain why she feels that way. She is quite oblivious as to why she is here and cannot give me any further history. Review of Systems Neuro Review of Systems Unable to obtain. Objective Physical Exam Last Vital Signs Date Time Temp Pulse Resp B/P (MAP) Pulse Ox O2 Delivery O2 Flow Rate FiO2 11/01/19 12:00 97.9 104 20 117/73 (88) 94 11/01/19 06:11 Room Air 10/31/19 11:23 3 Neurologic Exam Objective PHYSICAL EXAMINATION: GENERAL: She is a well developed, but lean lady lying in bed in no acute distress. HEAD: Normocephalic and atraumatic. NECK: No neck rigidity was observed. EENT: Benign. EXTREMITIES: Benign. NEUROLOGIC EXAMINATION: MENTAL STATUS EXAMINATION: She was awake but not completely alert. She was oriented to self only. She had no idea of where she was or the date was. She was unable to cooperate for further mental status testing. SPEECH: She had a mild dysarthria. LANGUAGE: Language was impossible to test because of inability to cooperate. CRANIAL NERVE EXAMINATION: II: She did blink to threat but was unable to cooperate for confrontation testing. III, IV, : External ocular movements were full and pupils 3 mm in diameter equal, round, regular and reactive to light. V: The facial sensations were normal, and the temporales, masseters and pterygoids functioned normally. VII: The facial expressions were normal and no facial asymmetry was seen. VIII: She was able to hear well bilaterally and had no nystagmus. IX: The palate moved symmetrically on phonation. X: There was no hoarseness of voice. XI: The sternocleidomastoids and trapezii functioned normally. XII: The tongue was in the midline without any fasciculations or atrophy. MOTOR SYSTEM: The tone was normal in all 4 extremities. Examination of muscle mass revealed generalized muscle wasting. In addition she also had mild bilateral ankle cord contractures. Examination of power could not be performed formally. She did move all 4 extremities and had fair hand assistant press operator bilaterally. SENSORY EXAMINATION: She responded appropriately to deep painful stimuli. She was unable to cooperate for other sensory modalities. COORDINATION: She did not cooperate for coordination testing. REFLEXES: 0 at the biceps, triceps, brachioradialis, knees and ankles. The plantar responses were flexor bilaterally. STANCE: Could not be tested. GAIT: Could not be tested. ABNORMAL MOVEMENTS: None Impression/Recommendations Diagnostic Impression DIAGNOSTIC IMPRESSION: 1. Ms. Alessandra Veliz is an 83-year-old, right-handed, lady, who does have a past history of diabetes mellitus and cognitive dysfunction. At her baseline she is able to communicate and do a little bit of walking. 2. She lives in a [facility] where she was noted to be increasingly weak, more confused and agitated, not her usual self. 3. She continues to be confused, disoriented, and at times agitated. She did have a PEG placed yesterday and is being fed through it. She says she feels unwell. She is unable to explain why she feels that way. She is quite oblivious as to why she is here and cannot give me any further history. 4. On neurological examination, at this time, She is awake but not completely alert. She is oriented to self only. She has no idea of where she is or the date is. She is unable to cooperate for further mental status testing. She does not demonstrate any definite focal findings on her cranial nerve examination. She is generally weak but does not demonstrate any focal weakness. She does have bilateral ankle cord contractures. She responds appropriately to deep pain but is unable to cooperate for other sensory modalities. Her deep tendon reflexes are globally absent but her plantar responses are flexor. She is unable to cooperate for coordination, stance, and gait testing. 5. Laboratory data obtained on my initial evaluation revealed a WBC count elevated at 16,000, a low hemoglobin at 11.7, elevated glucose at 198, elevated hemoglobin A1c at 6.6%, normal TSH at 2.929. The urinalysis reveals 3+ leukocyte esterase, 5-10 RBCs and too numerous to count WBCs per high-power field. 6. Further laboratory tests have revealed a normal vitamin B-12 level, low folate, and an elevated ESR. 7. The EEG performed on 10/28/2019 revealed findings compatible with a mild to moderate toxic metabolic encephalopathy and in addition a left mid temporal epileptogenic focus with infrequent interictal discharges. 8. The CT scan of the brain without contrast performed on 10/29/2019 revealed atrophy and some deep white matter changes but no acute pathology. 9. The patient's history, neurological examination, and laboratory data, are most consistent with underlying cognitive dysfunction most probably related to a primary degenerative process with a superadded toxic encephalopathy related to her acute urinary tract infection. 10. Her encephalopathy is stable today. Recommendations RECOMMENDATIONS: 1. Continue present management. 2. Folic acid 1 mg daily for folic acid deficiency. 3. Continue antibiotic treatment and fluid and electrolyte correction. 4. Observe closely. Isak Go M.D., M.S.P.H. Neurologist & Clinical Neurophysiologist Isak Go MD Nov 01, 2019 16:31
--- NOTE | 2019-11-01 19:06 | NUR ---
HAND-OFF: Report given to Rahul.
--- NOTE | 2019-11-01 19:15 | NUR ---
NURSE NOTES: Pt. received from BETTY Beltran. Pt. AAOx1 to name, on room air breathing even and unlabored, appears to be resting comfortably with no indications of pain. Pt. with gtube feeding running at 20cc, goal of 60cc, tolerating well. IV noted right hand 24g intact and patent. Soft wrist restraints on bilaterally, movement and sensation intact, pulses are palpable. Hemphill intact and draining yellow urine well, for urinary retention. Bed is low and locked, head of bed is elevated, side rails x3 up, bed alarm active, and call light in reach.
--- NOTE | 2019-11-01 20:41 | General Progress Note ---
Assessment/Plan Assessment/Plan: Assessment - OBS - anorexia - s/p PEG - malnutrition - macrocytic anemia with normal B12 Recommendations Continue GT feeds GT care Elevate HOB follow weight Subjective Allergies: Coded Allergies: ALENDRONATE SODIUM (Verified Allergy, Unknown, 10/27/19) SIMVASTATIN (Verified Allergy, Unknown, 10/27/19) Subjective Above noted s/p GT yesterday Calm, NAD Objective Last 24 Hour Vital Signs Date Time Temp Pulse Resp B/P (MAP) Pulse Ox O2 Delivery O2 Flow Rate FiO2 11/01/19 16:00 98.2 108 20 141/56 (84) 100 11/01/19 12:00 97.9 104 20 117/73 (88) 94 11/01/19 08:00 97.7 91 20 125/71 (89) 95 11/01/19 06:11 Room Air 11/01/19 04:00 97.9 105 22 112/68 (83) 94 11/01/19 00:00 98.1 101 24 106/69 (81) 93 10/31/19 21:00 Room Air Intake and Output 10/31/19 11/01/19 19:00 07:00 Intake Total 725 ml 635.0 ml Output Total 400 ml 300 ml Balance 325 ml 335.0 ml IV Total 725 ml 635.0 ml Output Urine Total 400 ml 300 ml Estimated Blood Loss 0 ml # Bowel Movements 1 2 Laboratory Tests 11/01/19 11:37: POC Whole Blood Glucose 156H Height (Feet): 5 Height (Inches): 2.00 Weight (Pounds): 116 Objective Elderly WW agitated NCAT supple CTA RRR abd soft ND NT, (+) GT no edema Ariadna Hamilton MD Nov 01, 2019 20:41
[2019-11-02] VITALS: BP 106/48
[2019-11-02] MEDS: D5 1/2NS 1,000 ML IV SCH ×2 (02:30→16:50)
--- NOTE | 2019-11-02 03:58 | NUR ---
NURSE NOTES: Pt.'s blood pressure assessed with automatic machine, 91/38. Reassessed on opposite arm with a manual cuff, 90/40. Pt. verbally responsive, awake and alert to baseline, able to perform range of motion exercises with instruction. Gtube flushed with free water as ordered, no residuals. Charge nurse aware. Will continue to monitor.
[2019-11-02 04:00] VITALS: BP 90/40
[2019-11-02] MEDS: Piperacillin/Tazobactam 3.375 GM in NS 110 ML IVPB SCH ×2 (05:18→15:37)
[2019-11-02 06:40] LABS: ANION GAP 8 mmol/L (5-15); BLOOD UREA NITROGEN 7 mg/dL (7-18); CARBON DIOXIDE 27 MMOL/L (21-32); CHLORIDE 99 MMOL/L (98-107); CREATININE 0.6 MG/DL (0.55-1.30); POTASSIUM 3.6 MMOL/L (3.5-5.1); SODIUM 134 MMOL/L (136-145)
[2019-11-02] MEDS: sitaGLIPtin 25mg tab ORAL SCH (06:40)
[2019-11-02] MEDS: NovoLOG Insulin Flexpen SUBQ SCH ×3 (06:41→16:30)
--- NOTE | 2019-11-02 07:37 | NUR ---
HAND-OFF: Report given to BETTY Beltran.
--- NOTE | 2019-11-02 07:42 | NUR ---
NURSE NOTES: pt is in the bed asleep. no SOB noted. GTF is in-place and infusing, tubing patent, HOB elevated. No coughing noted at this time. place call light within reach, will continue to monitor.
[2019-11-02 08:00] VITALS: BP 103/46
[2019-11-02] MEDS: Heparin 5000 units/ml inj SUBQ SCH (08:58)
--- NOTE | 2019-11-02 09:20 | Surgery Progress Note ---
Surgery Progress Note Subjective Symptoms: improved, tolerating diet, voiding well, passing flatus Objective Last 24 Hour Vital Signs Date Time Temp Pulse Resp B/P (MAP) Pulse Ox O2 Delivery O2 Flow Rate FiO2 11/02/19 04:00 97.5 114 24 90/40 (57) 92 11/02/19 00:00 97.2 98 24 106/48 (67) 95 11/01/19 21:30 95/56 (69) 11/01/19 21:30 90/55 (67) 11/01/19 21:00 Room Air 11/01/19 20:00 97.2 93 24 93/59 (70) 94 11/01/19 16:00 98.2 108 20 141/56 (84) 100 11/01/19 12:00 97.9 104 20 117/73 (88) 94 I&O Intake and Output 11/01/19 11/02/19 19:00 07:00 Intake Total 60 ml 1205.0 ml Output Total 650 ml 700 ml Balance -590 ml 505.0 ml Free Water 100 ml IV Total 785.0 ml Tube Feeding 60 ml 320 ml Output Urine Total 650 ml 700 ml # Bowel Movements 1 1 Dressing: dry Wound: clean, dry Cardiovascular: RSR Respiratory: clear Abdomen: soft, non-tender, present bowel sounds Extremities: no edema, no tenderness, no cyanosis Laboratory Tests Test 11/01/19 11:37 11/01/19 16:54 11/01/19 20:05 11/02/19 05:15 POC Whole Blood Glucose 156 MG/DL (74-106) H Pending 157 MG/DL (74-106) H Sodium Level 134 MMOL/L (136-145) L Potassium Level 3.6 MMOL/L (3.5-5.1) Chloride Level 99 MMOL/L (98-107) Carbon Dioxide Level 27 MMOL/L (21-32) Anion Gap 8 mmol/L (5-15) Blood Urea Nitrogen 7 mg/dL (7-18) Creatinine 0.6 MG/DL (0.55-1.30) Estimat Glomerular Filtration Rate > 60 mL/min (>60) Glucose Level 269 MG/DL (74-106) H Hemoglobin A1c 7.1 % (4.3-6.0) H Calcium Level 10.0 MG/DL (8.5-10.1) Calcium (Send out) Pending Phosphorus Level 2.0 MG/DL (2.5-4.9) L Vitamin D 25-Hydroxy Pending 25-Hydroxy Vitamin D2 Pending 25-Hydroxy Vitamin D3 Pending Thyroid Stimulating Hormone (TSH) 2.643 uiU/mL (0.358-3.740) Parathyroid Hormone (Intact) Pending Plan Problems: (1) Decubitus skin ulcer Assessment & Plan: Patient presented on admission with large identifiable sacral decubitus ulcer. Pt presented on admission with partially opened DTPI Sacrum, R and L buttocks(L) 14cm x (W)12.6cm. Base of wound is maroon with scattered purple areas within base of wound. At L Buttocks Wound with 100% slough noted (L)2.2cm x (W) 1.5cm.Non-Blanching erythema with shearing noted to R and L Gluteus. Incontinence associated dermatitis noted to perineum and medial aspects of both upper thighs. Skin is erythematous with scattered satellite lesions and denudement. Non-Blanching erythema without induration /fluctuance R and L Hallux. Non-Blanching erythema without fluctuance/induration Lateral R Malleolus(L) 1.5cm x (W)1cm. Non-Blanching erythema medial R heel. Base of wound is fluctuant with delineated margins(L)5.5cm x (W)5cm. L Heel is boggy with non-blanching erythema. Tx.Plan: Cleanse wound L Buttocks with Saline. Apply Therahoney. Apply Moisture Barrier Paste to surrounding DTPI. Cover with Optifoam drsg. Change every 3 days and prn. Apply Triad Paste to Perineum and medial aspects of both thighs with each Incontinence care. Apply Cavilon Skin Barrier to both heels. Cover with Optifoam drsgs. Change every 7 days and prn. Apply Cavilon Skin Barrier to R and L Hallux and Malleoli. Cover each Site with Optifoam drsgs. Change every 7 days and prn. Reposition at least every 2hours or as tolerated. Off-load heels with Pillows. APM/DANII Mattress overlay. We will follow with recommendations thank you (2) Failure to thrive (3) Episode of generalized weakness (4) UTI (urinary tract infection) (5) Severe protein-calorie malnutrition Assessment & Plan: DAILY ESTIMATED NEEDS: Needs based on DM, 50.3kg 25-35 kcals/kg 7456-9691 total kcals 1.25-1.5 g protein/kg 63-75 g total protein 25-30 mL/kg 0483-9175 total fluid mLs NUTRITION DIAGNOSIS: Swallowing difficulty r/t FTT and poor po intake as evidenced by pt adm from SNF w/ poor intake, now s/p GT placement. ENTERAL NUTRITION RECOMMENDATIONS: LOWER GLUCERNA 1.2 to goal of 55ml/hr x24 hrs to provide 1320ml, 1584 kcal, 79g pro, 1063ml free fluid - S/p PEG, start Glucerna 1.2 @low rate 15ml/hr for 6hrs - Advance as tolerated 10ml/hr q4-6 hrs to goal of 55ml/hr x24 hrs. 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
--- NOTE | 2019-11-02 11:05 | NUR ---
CASE MANAGEMENT:REVIEW SI;UTI. FTT. ENCEPHALOPATHY. 97.2 114 24 90/40 92% ON RA NA 134 BG 269 CA 7.1 IS;IVF NSS @ 75 ML/HR ZOSYN IV Q8 TRAMADOL GT JANUVIA GT HEPARIN SUBQ MED SURG STATUS DCP;PATIENT IS FROM [facility] PLAN; ASPIRATION PRECAUTIONS GT CARE GT FEEDINGS
--- NOTE | 2019-11-02 11:38 | Infectious Diseases Prog Note ---
Assessment/Plan Assessment/Plan IMPRESSION: Sepsis resolving E coli urinary tract infection. Deep tissue injury in sacral buttock area. Diabetes mellitus type 2, Dementia, osteoporosis, Toxic encephalopathy Dysphagia s/p PEG placement RECOMMENDATION: Continue with Zosyn X 1 day Negative COVID19 test Subjective ROS Limited/Unobtainable: Yes Neurologic: Reports: confusion, other - on restraint Allergies: Coded Allergies: ALENDRONATE SODIUM (Verified Allergy, Unknown, 10/27/19) SIMVASTATIN (Verified Allergy, Unknown, 10/27/19) Objective Last 24 Hour Vital Signs Date Time Temp Pulse Resp B/P (MAP) Pulse Ox O2 Delivery O2 Flow Rate FiO2 11/02/19 09:00 Room Air 11/02/19 08:00 98.1 111 20 103/46 (65) 96 11/02/19 04:00 97.5 114 24 90/40 (57) 92 11/02/19 00:00 97.2 98 24 106/48 (67) 95 11/01/19 21:30 95/56 (69) 11/01/19 21:30 90/55 (67) 11/01/19 21:00 Room Air 11/01/19 20:00 97.2 93 24 93/59 (70) 94 11/01/19 16:00 98.2 108 20 141/56 (84) 100 11/01/19 12:00 97.9 104 20 117/73 (88) 94 Height (Feet): 5 Height (Inches): 2.00 Weight (Pounds): 116 HEENT: mucous membranes moist Respiratory/Chest: lungs clear Cardiovascular: tachycardia Abdomen: soft, non tender, other - GT feeding Extremities: no edema Neurologic/Psychiatric: alert, responsive Microbiology Date/Time Source Procedure Growth Status 10/31/19 07:23 Nasopharynx SARS-CoV-2 RdRp Gene Assay - Final Complete Laboratory Tests Test 11/01/19 16:54 11/01/19 20:05 11/02/19 05:15 POC Whole Blood Glucose Pending 157 MG/DL (74-106) H Sodium Level 134 MMOL/L (136-145) L Potassium Level 3.6 MMOL/L (3.5-5.1) Chloride Level 99 MMOL/L (98-107) Carbon Dioxide Level 27 MMOL/L (21-32) Anion Gap 8 mmol/L (5-15) Blood Urea Nitrogen 7 mg/dL (7-18) Creatinine 0.6 MG/DL (0.55-1.30) Estimat Glomerular Filtration Rate > 60 mL/min (>60) Glucose Level 269 MG/DL (74-106) H Hemoglobin A1c 7.1 % (4.3-6.0) H Calcium Level 10.0 MG/DL (8.5-10.1) Calcium (Send out) Pending Phosphorus Level 2.0 MG/DL (2.5-4.9) L Vitamin D 25-Hydroxy Pending 25-Hydroxy Vitamin D2 Pending 25-Hydroxy Vitamin D3 Pending Thyroid Stimulating Hormone (TSH) 2.643 uiU/mL (0.358-3.740) Parathyroid Hormone (Intact) Pending Current Medications Medications (Trade) Dose Ordered Sig/Zeferino Route PRN Reason Start Time Stop Time Status Last Admin Dose Admin Acetaminophen (Tylenol) 650 mg Q4H PRN ORAL Mild Pain (Pain Scale 1-3) 10/27/19 17:00 11/26/19 16:59 11/01/19 11:47 Dextrose (Dextrose 50%) 25 ml Q30M PRN IV Hypoglycemia 10/27/19 17:00 01/25/20 16:59 Dextrose (Dextrose 50%) 50 ml Q30M PRN IV Hypoglycemia 10/27/19 17:00 01/25/20 16:59 Dextrose/Sodium Chloride 1,000 ml @ 75 mls/hr [id number] IV 10/31/19 11:30 11/30/19 11:29 11/02/19 02:30 Folic Acid (Folate) 1 mg DAILY ORAL 10/30/19 13:30 11/29/19 13:29 11/02/19 08:56 Heparin Sodium (Porcine) (Heparin 5000 units/ml) 5,000 units EVERY 12 HOURS SUBQ 10/27/19 17:00 12/11/19 16:59 11/02/19 08:58 Insulin Aspart (NovoLOG) BEFORE MEALS AND HS SUBQ 10/27/19 21:00 01/25/20 20:59 11/02/19 06:41 Olanzapine (ZyPREXA) 2.5 mg Q6H PRN ORAL agitation 10/28/19 15:00 12/12/19 14:59 11/01/19 11:46 Piperacillin Sod/ Tazobactam Sod 3.375 gm/Sodium Chloride 110 ml @ 27.5 mls/hr EVERY 8 HOURS IVPB 10/27/19 18:00 11/05/19 17:59 11/02/19 05:18 Sitagliptin Phosphate (Januvia) 50 mg ACBREAKFAST ORAL 11/01/19 06:30 11/30/19 06:29 11/02/19 06:40 Tramadol HCl (Ultram) 50 mg Q8H PRN ORAL Moderate Pain (Pain Scale 4-6) 10/28/19 11:15 11/04/19 11:14 11/01/19 05:02 Felix Pham MD Nov 02, 2019 11:38
[2019-11-02 12:00] VITALS: BP 116/58
[2019-11-02] MEDS ORDERED: Potassium Phosphate 15mm/250ml 250 ML IVPB ONE (14:00)
--- NOTE | 2019-11-02 14:10 | NUR ---
*-*DISCHARGE PLANNED*-* PATIENT HAS BEEN ACCEPTED AND WILL BE DISCHARGED BACK TO: [facility] P: [phone] FOR NURSE TO NURSE REPORT ROOM# 19.P [facility] WILL CALL S/W SAGE [id number] S/W PATIENTS GRANDDAUGHTER MAE REYNOLDS, WHO IS IN AGREEMENT WITH DISCHARGE.
--- NOTE | 2019-11-02 15:36 | Neurology Progress Note ---
Interim History Interim History Interim History Ms. Alessandra Veliz is an 83-year-old, right-handed, lady, who does have a past history of diabetes mellitus and cognitive dysfunction. At her baseline she is able to communicate and do a little bit of walking. She lives in a [facility] where she was noted to be increasingly weak, more confused and agitated, not her usual self. When she was first evaluated by me on 10/28/2019 it was felt that she had underlying cognitive dysfunction most probably related to a primary degenerative process with a superadded toxic encephalopathy related to her acute urinary tract infection. She continues to be confused, disoriented, and at times agitated. She did have a PEG placed yesterday and is being fed through it. She says she feels well. She is tolerating her G-tube feeds well. She is still oblivious as to why she is here and cannot give me any further history. Review of Systems Neuro Review of Systems Unable to obtain. Objective Physical Exam Last Vital Signs Date Time Temp Pulse Resp B/P (MAP) Pulse Ox O2 Delivery O2 Flow Rate FiO2 11/02/19 12:00 97.7 102 20 116/58 (77) 94 11/02/19 09:00 Room Air 10/31/19 11:23 3 Laboratory Tests Test 11/01/19 16:54 11/01/19 20:05 11/02/19 05:15 POC Whole Blood Glucose Pending 157 MG/DL (74-106) H Sodium Level 134 MMOL/L (136-145) L Potassium Level 3.6 MMOL/L (3.5-5.1) Chloride Level 99 MMOL/L (98-107) Carbon Dioxide Level 27 MMOL/L (21-32) Anion Gap 8 mmol/L (5-15) Blood Urea Nitrogen 7 mg/dL (7-18) Creatinine 0.6 MG/DL (0.55-1.30) Estimat Glomerular Filtration Rate > 60 mL/min (>60) Glucose Level 269 MG/DL (74-106) H Hemoglobin A1c 7.1 % (4.3-6.0) H Calcium Level 10.0 MG/DL (8.5-10.1) Calcium (Send out) Pending Phosphorus Level 2.0 MG/DL (2.5-4.9) L Vitamin D 25-Hydroxy Pending 25-Hydroxy Vitamin D2 Pending 25-Hydroxy Vitamin D3 Pending Thyroid Stimulating Hormone (TSH) 2.643 uiU/mL (0.358-3.740) Parathyroid Hormone (Intact) Pending Neurologic Exam Objective PHYSICAL EXAMINATION: GENERAL: She is a well developed, but lean lady lying in bed in no acute distress. HEAD: Normocephalic and atraumatic. NECK: No neck rigidity was observed. EENT: Benign. EXTREMITIES: Benign. NEUROLOGIC EXAMINATION: MENTAL STATUS EXAMINATION: She was awake but not completely alert. She was oriented to self only. She had no idea of where she was or the date was. She was unable to cooperate for further mental status testing. SPEECH: She had a mild dysarthria. LANGUAGE: Language was impossible to test because of inability to cooperate. CRANIAL NERVE EXAMINATION: II: She did blink to threat but was unable to cooperate for confrontation testing. III, IV, : External ocular movements were full and pupils 3 mm in diameter equal, round, regular and reactive to light. V: The facial sensations were normal, and the temporales, masseters and pterygoids functioned normally. VII: The facial expressions were normal and no facial asymmetry was seen. VIII: She was able to hear well bilaterally and had no nystagmus. IX: The palate moved symmetrically on phonation. X: There was no hoarseness of voice. XI: The sternocleidomastoids and trapezii functioned normally. XII: The tongue was in the midline without any fasciculations or atrophy. MOTOR SYSTEM: The tone was normal in all 4 extremities. Examination of muscle mass revealed generalized muscle wasting. In addition she also had mild bilateral ankle cord contractures. Examination of power could not be performed formally. She did move all 4 extremities and had fair hand elementary reading specialist bilaterally. SENSORY EXAMINATION: She responded appropriately to deep painful stimuli. She was unable to cooperate for other sensory modalities. COORDINATION: She did not cooperate for coordination testing. REFLEXES: 0 at the biceps, triceps, brachioradialis, knees and ankles. The plantar responses were flexor bilaterally. STANCE: Could not be tested. GAIT: Could not be tested. ABNORMAL MOVEMENTS: None Impression/Recommendations Diagnostic Impression DIAGNOSTIC IMPRESSION: 1. Ms. Alessadnra Veliz is an 83-year-old, right-handed, lady, who does have a past history of diabetes mellitus and cognitive dysfunction. At her baseline she is able to communicate and do a little bit of walking. 2. She lives in a [facility] where she was noted to be increasingly weak, more confused and agitated, not her usual self. 3. She continues to be confused, disoriented, and at times agitated. She did have a PEG placed yesterday and is being fed through it. She says she feels well. She is tolerating her G-tube feeds well. She is still oblivious as to why she is here and cannot give me any further history. 4. On neurological examination, at this time, She is awake but not completely alert. She is oriented to self only. She has no idea of where she is or the date is. She is unable to cooperate for further mental status testing. She does not demonstrate any definite focal findings on her cranial nerve examination. She is generally weak but does not demonstrate any focal weakness. She does have bilateral ankle cord contractures. She responds appropriately to deep pain but is unable to cooperate for other sensory modalities. Her deep tendon reflexes are globally absent but her plantar responses are flexor. She is unable to cooperate for coordination, stance, and gait testing. 5. Laboratory data obtained on my initial evaluation revealed a WBC count elevated at 16,000, a low hemoglobin at 11.7, elevated glucose at 198, elevated hemoglobin A1c at 6.6%, normal TSH at 2.929. The urinalysis reveals 3+ leukocyte esterase, 5-10 RBCs and too numerous to count WBCs per high-power field. 6. Further laboratory tests have revealed a normal vitamin B-12 level, low folate, and an elevated ESR. 7. The EEG performed on 10/28/2019 revealed findings compatible with a mild to moderate toxic metabolic encephalopathy and in addition a left mid temporal epileptogenic focus with infrequent interictal discharges. 8. The CT scan of the brain without contrast performed on 10/29/2019 revealed atrophy and some deep white matter changes but no acute pathology. 9. The patient's history, neurological examination, and laboratory data, are most consistent with underlying cognitive dysfunction most probably related to a primary degenerative process with a superadded toxic encephalopathy related to her acute urinary tract infection. 10. Her encephalopathy is stable today. Recommendations RECOMMENDATIONS: 1. Continue present management. 2. Folic acid 1 mg daily for folic acid deficiency. 3. Continue antibiotic treatment and fluid and electrolyte correction. 4. Observe closely. Isak Go M.D., M.S.P.H. Neurologist & Clinical Neurophysiologist Isak Go MD Nov 02, 2019 15:36
[2019-11-02 16:00] VITALS: BP 99/57
[2019-11-02] MEDS ORDERED: Tubing IV Secondary IV ONE (18:59)
[2019-11-02] MEDS ORDERED: NS 275ml ONE (18:59)
[2019-11-02] MEDS ORDERED: D5 1/2NS 1000ml IV ONE (18:59)
--- NOTE | 2019-11-02 19:05 | NUR ---
NURSE NOTES: Pt d/c to [facility]. pt is awake a&o x 2. no acute distress noted. kept clean and dry. picture taken for sacral pressure injury. wound care provided as ordered. no discharge teaching done because pt is unable to understand and has episodes of confusion; provided reality orientation. ID band and IV site removed. Pt is transported via [facility], accompanied by 2 line patroller.
--- NOTE | 2019-11-02 19:42 | General Progress Note ---
Assessment/Plan Assessment/Plan: Assessment - OBS - anorexia - s/p PEG - malnutrition - macrocytic anemia with normal B12 Recommendations Continue GT feeds GT care Elevate HOB follow weight Subjective Allergies: Coded Allergies: ALENDRONATE SODIUM (Verified Allergy, Unknown, 10/27/19) SIMVASTATIN (Verified Allergy, Unknown, 10/27/19) Subjective Above noted seen earlier this am agitated when moved by staff Objective Last 24 Hour Vital Signs Date Time Temp Pulse Resp B/P (MAP) Pulse Ox O2 Delivery O2 Flow Rate FiO2 11/02/19 16:00 98.4 107 20 99/57 (71) 94 11/02/19 12:00 97.7 102 20 116/58 (77) 94 11/02/19 09:00 Room Air 11/02/19 08:00 98.1 111 20 103/46 (65) 96 11/02/19 04:00 97.5 114 24 90/40 (57) 92 11/02/19 00:00 97.2 98 24 106/48 (67) 95 11/01/19 21:30 95/56 (69) 11/01/19 21:30 90/55 (67) 11/01/19 21:00 Room Air 11/01/19 20:00 97.2 93 24 93/59 (70) 94 Intake and Output 11/01/19 11/02/19 19:00 07:00 Intake Total 60 ml 1205.0 ml Output Total 650 ml 700 ml Balance -590 ml 505.0 ml Free Water 100 ml IV Total 785.0 ml Tube Feeding 60 ml 320 ml Output Urine Total 650 ml 700 ml # Bowel Movements 1 1 Laboratory Tests 11/01/19 20:05: POC Whole Blood Glucose 157H 11/02/19 05:15: Sodium Level 134L, Potassium Level 3.6, Chloride Level 99, Carbon Dioxide Level 27, Anion Gap 8, Blood Urea Nitrogen 7, Creatinine 0.6, Estimat Glomerular Filtration Rate > 60, Glucose Level 269H, Hemoglobin A1c 7.1H, Calcium Level 10.0, Calcium (Send out) [Pending], Phosphorus Level 2.0L, Vitamin D 25-Hydroxy [Pending], 25-Hydroxy Vitamin D2 [Pending], 25-Hydroxy Vitamin D3 [Pending], Thyroid Stimulating Hormone (TSH) 2.643, Parathyroid Hormone (Intact) [Pending] Height (Feet): 5 Height (Inches): 2.00 Weight (Pounds): 116 Objective Elderly WW agitated NCAT supple CTA RRR abd soft ND NT, (+) GT no edema Ariadna Hamilton MD Nov 02, 2019 19:42
--- NOTE | 2019-11-02 22:58 | Psych Consult Progress Note ---
Psychiatry Progress Note Psychiatry Progress Note Subjective 11/01/2019 Medications the pt was screaming. Neurological/Psychiatric: Reports: anxiety, depressed Allergies: Coded Allergies: ALENDRONATE SODIUM (Verified Allergy, Unknown, 10/27/19) SIMVASTATIN (Verified Allergy, Unknown, 10/27/19) Objective Data Height (Feet): 5 Height (Inches): 2.00 Weight (Pounds): 116 Additional Comments: Mood is neutral. Affect is flat. Thought process, there is a paucity of thought content. Thought content, no suicidal or homicidal ideation. Cognition is impaired. Insight and judgment impaired. ASSESSMENT: Morse I Acute toxic encephalopathy/metabolic encephalopathy. Depressive disorder. Morse II Deferred. Morse III As above. Morse IV Low. Morse V 50. PLAN: 1. We will start patient on Zyprexa p.r.n. 2. Bilateral soft restraints as she pulled out her lines. 3. Discussed with Dr. Pham. Kar Nelson MD Nov 02, 2019 22:58
--- NOTE | 2019-11-02 22:58 | Psych Consult Progress Note ---
Psychiatry Progress Note Psychiatry Progress Note Allergies: Coded Allergies: ALENDRONATE SODIUM (Verified Allergy, Unknown, 10/27/19) SIMVASTATIN (Verified Allergy, Unknown, 10/27/19) Objective Data Height (Feet): 5 Height (Inches): 2.00 Weight (Pounds): 116 General Appearance: alert, confused, agitated Additional Comments: Mood is neutral. Affect is flat. Thought process, there is a paucity of thought content. Thought content, no suicidal or homicidal ideation. Cognition is impaired. Insight and judgment impaired. ASSESSMENT: Gridley I Acute toxic encephalopathy/metabolic encephalopathy. Depressive disorder. Gridley II Deferred. Gridley III As above. Gridley IV Low. Gridley V 50. PLAN: 1. We will start patient on Zyprexa p.r.n. 2. Bilateral soft restraints as she pulled out her lines. 3. Discussed with Dr. Pham. Kar Nelson MD Nov 02, 2019 22:58
--- NOTE | 2019-11-04 12:03 | Discharge Summary ---
Discharge Summary Discharge Summary _ DATE OF ADMISSION: 10/27/2019 DATE OF DISCHARGE: 11/02/2019 DISCHARGED BY: Dr. Migel Pham REASON FOR ADMISSION: 83 years old female, with past medical history of diabetes mellitus, depression , resident of [facility], was sent for evaluation due to poor oral intake. Patient had poor oral intake for a while. However over the past week she did not eat or drink almost anything . Patient started on the IV fluids, however she was not doing well , and subsequently was sent to emergency room for further evaluation and possible G- tube placement. Upon initial evaluation in emergency department patient was also found to be hypokalemic and dehydrated . Blood pressure was on the low side 96/64 , patient was mildly tachycardic with heart rate 104 ; pulse oximetry was 92% on room air. Laboratory work-up revealed WBC 13.4, stable hemoglobin and hematocrit. Potassium 2.9. Glucose 138. Lactic acid 1.2. Albumin 2.3. Urinalysis revealed +3 protein, pyuria, +3 leukocyte esterase, and many bacteria. Chest x-ray revealed no acute cardiopulmonary pathology. Patient was admitted for failure to thrive ,UTI, hypokalemia ,generalized weakness. In emergency department patient pancultured , started on empiric antibiotics and IV fluids. CONSULTANTS: neurologist Dr. Willingham ID specialist Dr. Felix Pham GI specialist Dr. Hamilton surgery Dr. John psychiatrist [facility] COURSE: Patient admitted and started on the IV fluids and empiric antibiotics. Blood cultures were negative. Urine culture revealed E. coli ESBL. MORE COV 2 by PCR rapid test was negative. Patient provided with antibiotic as per ID specialist recommendation. GI specialist seen and evaluated patient . Initially nutritional support provided via NG tube with strict aspiration/ reflux precaution. Patient subsequently undergone upper endoscopy with gastrostomy tube placement. Patient tolerated procedure well. The next day patient started on tube feeding with strict aspiration precaution. G-tube site care provided. Protein supplements along with tube feeding formula and goal rate provided as per registered dietitian recommendation. DVT prophylaxis provided. Bowel regimen instituted. Potassium was replaced . Renal parameters and electrolytes were closely monitored , nephrotoxic's were avoided. Blood sugar was managed with Januvia and sliding scale of insulin as needed . CT of the head revealed no acute intracranial pathology. 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 Per neurologist , patient history, neurological examination and laboratory data were most consistent with underlying cognitive dysfunction , most probably related to a primary degenerative process with a superadded toxic encephalopathy related to acute urinary tract infection. Patient had macrocytic anemia . B12 level was stable, but low folate. Patient started on folic acid replacement. Hemoglobin and hematocrit were closely monitored with goal to keep hemoglobin above 7 , and prior to discharge hemoglobin 10.5 and hematocrit 32.5. Patient presented on admission with a large sacral decubitus ulcer and other deep tissue injury. Wound care provided as per surgeon recommendation , continue wound care at the facility. Per psychiatrist, patient had acute toxic and metabolic encephalopathy along with depressive disorder. Patient started on Zyprexa as needed. Supportive care provided. Bowel regimen instituted. Patient clinically stabilized. Leukocytosis resolved. No fevers. Patient was able to tolerate tube feeding. All electrolytes stable prior to discharge Patient was discharged to the [facility] for continuation of care FINAL DIAGNOSES: Sepsis E. coli ESBL UTI Diabetes mellitus type 2 Toxic metabolic encephalopathy Anorexia Dysphagia , status upper endoscopy with PEG placement Severe protein calorie malnutrition Macrocytic anemia with normal B12 Anorexia Folic acid deficiency Osteoporosis Suspected COVID-19 -was ruled out Hypokalemia Decubitus skin ulcer and deep tissue injury, present on admission Depressive disorder Dementia DISCHARGE MEDICATIONS: See Medication Reconciliation list. DISCHARGE INSTRUCTIONS: Patient was discharged to the [facility]. Follow up with medical doctor at the facility. 82 years old female I have been assigned to dictate discharge summary for this account. I was not involved in the patient's management. Candace Medina NP Nov 04, 2019 12:03
== END 2019-11-02 19:00 | DRG 871 ==
LOC: EDBD 10:12 → EMR 11:00 → 4E 13:25 → EDBEDREQ 14:33 → 4E 10-29 05:47
PROC: 0DH63UZ Insertion of Feeding Device into Stomach, Percutaneous Approach (ICD-10-PCS; principal; 2019-10-31 10:59)
DX: A41.9 Sepsis, unspecified organism (principal); E43 Unspecified severe protein-calorie malnutrition; G92 Toxic encephalopathy; N39.0 Urinary tract infection, site not specified; Z16.12 Extended spectrum beta lactamase (ESBL) resistance; E87.6 Hypokalemia; E11.9 Type 2 diabetes mellitus without complications; Z88.8 Allergy status to other drugs, medicaments and biological substances; R62.7 Adult failure to thrive; L89.156 Pressure-induced deep tissue damage of sacral region; L89.326 Pressure-induced deep tissue damage of left buttock; L89.316 Pressure-induced deep tissue damage of right buttock; D64.9 Anemia, unspecified; F03.90 Unspecified dementia, unspecified severity, without behavioral disturbance, psychotic disturbance, mood disturbance, and anxiety; M81.0 Age-related osteoporosis without current pathological fracture; R13.10 Dysphagia, unspecified; B96.20 Unspecified Escherichia coli [E. coli] as the cause of diseases classified elsewhere; Z20.828 Contact with and (suspected) exposure to other viral communicable diseases; E53.8 Deficiency of other specified B group vitamins; F32.9 Major depressive disorder, single episode, unspecified
CPT/HCPCS: 36415; 70450; 71045; 74018; 80048; 80053; 80061; 81003; 82306; 82607; 82746; 82962; 83036; 83605; 83735; 83970; 84100; 84443; 85007; 85025; 85610; 85651; 85730; 86592; 87040; 87081; 87086; 87181; 94003; 94150; 95819; 96360; 99285; J1815; J7030; U0002